=== PATIENT | male | born 1990 | race Caucasian/White ===

== ENCOUNTER 2022-10-04 10:04 | Emergency (ER) | payer SELFPAY ==
[2022-10-04 10:05] VITALS: BP 140/115; PULSE 103; RESP 18; TEMP 35.8; O2SAT 100; BMI 23.3
[2022-10-04] MEDS: 0.9% Normal Saline 1,000 ML 1000 ML IV (10:34)
[2022-10-04] MEDS: Ondansetron 4 MG/2 ML Vial IV (10:35)
[2022-10-04] MEDS: Ketorolac 15 MG/ML Vial IV (10:36)
[2022-10-04 10:47] LABS: Absolute Lymphocyte Count 2.13 X10^3/uL (0.83-4.51); Absolute Neutrophil Count 7.7 X10^3/uL (2.0-7.7); Basophil# 0.08 X10^3/uL; Basophil% 0.8 % (0-1); Eosinophil# 0.17 X10^3/uL; Eosinophils% 1.6 % (0-5); Hematocrit 49.1 % (40-54); Hemoglobin 16.6 g/dL (13.0-16.5); Lymphocyte # 2.13 X10^3/ul (0.83-4.51); Mean Corp Hgb Conc 33.8 g/dL (32-36); Mean Corpuscular Hgb 29.8 pg (27.0-32.0); Mean Corpuscular Volume 88.2 fL (80-94); Mean Platelet Vol. 9.6 fl (6.2-12.0); Monocyte# 0.56 X10^3/uL; Monocyte% 5.3 % (0-10); NRBC Flagged by Analyzer 0 % (0-5); Neutrophil # 7.65 X10^3/uL (2.7-7.7); Neutrophil % 71.9 % (47-70); Platelet Count 308 K/mm3 (150-450); RBC Distribution Width CV 12.2 % (11.6-14.6); RBC Distribution Width SD 39.9 fl (35.1-43.9); Red Blood Count 5.57 M/mm3 (4.6-6.2); White Blood Count 10.6 K/mm3 (4.4-11.0)
--- NOTE | 2022-10-04 11:01 | EDS_ITS ---
HPI HPI - GI History of Present Illness Chief Complaint: Abd Pain Detail of Chief Complaint: Abdominal pain from subxiphoid region to the pubic symphysis and back Informant: patient Abdominal Pain/Flank Pain Onset: Month(s) (Has been present for months worse past 12 to 24 hours) Context: Sudden Onset Timing: Continuous Quality: Aching Location: - (Epigastrium to pubic symphysis) Current Severity: Moderate Maximum Severity: Severe Worsened by: Car ride, Food and Movement; Not Worsened By Nothing Relieved by: Nothing; Not Relieved By Antacids, Food or Remaining Still Nausea/Vomiting/Emesis GI Symptom: Positive for Nausea and Vomiting (X1 today) Diarrhea/Melena/Hematochezia GI Symptom: Negative for Diarrhea, Melena or Hematochezia Associated Symptoms Associated Symptoms: Negative for Dysuria, Frequency, Hematuria or Urgency Narrative Narrative: As I entered the room patient was pacing. He states he cannot find a position of comfort. Patient's had abdominal pain for greater than a year. The pain became worse over the past 12-24 hrs. He was seen in outside facility. He was seen at [facility]. He was told he had dyspepsia. ER record from that facility was obtained and reviewed. Patient has had no imaging. Nothing specifically made the pain worse. He denies history of renal ureterolithiasis. He denies family history of renal ureterolithiasis. He denies intolerance to greasy food, fried foods or spicy foods. There is family history cholelithiasis. He does report nausea and vomiting x1 today. He denies fever, chills night sweats. He denies cough, shortness of breath or difficulty breathing. He denies dysuria, frequency, urgency or hematuria. He denies pain radiating to his scrotum or testicles. He denies flank pain. He denies history of trauma. He does endorse smoking history. He denies illicit drug use. PFSH PFS Medical History no medical history no medical history Home Medications famotidine 20 mg tablet (Pepcid) 20 mg PO BID #30 tabs 10/04/22 [Rx Last Taken Unknown] Allergy/AdvReac Type Severity Reaction Status Date / Time No Known Allergies Allergy Verified 10/04/22 10:05 Family History other other (Cholelithiasis) Surgical History no surgical history no surgical history Social History (Updated 10/04/22 @ 11:[address] Len Strauss MD) household members: none Smoking Status: Current every day smoker tobacco type: cigarettes substance use type: does not use ROS ROS ED Constitutional Constitutional ED: Denies chills, fever(s), subjective, sweats or weight loss ENT ENT ED: Denies ear pain, rhinorrhea or sore throat Cardiovascular Cardiovascular: Denies chest pain, orthopnea, palpitations, paroxysmal nocturnal dyspnea or racing heartbeat Respiratory/Chest Respiratory/Chest: Denies cough, dyspnea, dyspnea on exertion, orthopnea or paroxysmal nocturnal dyspnea Gastrointestinal Gastrointestinal: Reports abdominal pain, nausea and vomiting; Denies constipation, diarrhea or melena Genitourinary Genitourinary ED: Denies dysuria, hematuria or urinary frequency Musculoskeletal Musculoskeletal: Denies arthralgias, back pain, myalgias or neck pain Integumentary Denies abscess, Abrasions or rash Neurologic Neurologic: Denies headache(s), paresthesias or weakness Psychiatric Psychiatric: Denies anxiety or depression Endocrine Endocrinology: Denies polydipsia, polyphagia or polyuria Hematologic/Lymphatic Hematologic/Lymphatic: Denies easy bleeding or easy bruising EXAM Physical Exam Const Vital Signs: 10/04/22 10:05 Temperature 96.4 F L Temperature Source Temporal Pulse Rate 103 H Respiratory Rate 18 Blood Pressure 140/115 H Blood Pressure Mean 123 Pulse Ox 100 Oxygen Delivery Method Room Air Positive well nourished and well developed General Appearance ED: well developed; Negative for NAD or pallor HEENT Reports TM's clear HEENT Narrative: Poor dentition. Uvula midline. No erythema or exudate the posterior pharynx. normocephalic Tympanic Membrane ED: Yes TM's clear Eyes PERRL General Eye ED: Negative for pale conjunctiva or scleral icterus Neck no lymphadenopathy, supple and no JVD Resp normal respiratory effort Cardio regular rhythm, S1 normal heart sound, S2 normal heart sound and no murmurs Rate: tachycardic GI no masses; Negative for non-tender or non-distended Inspection: abdominal distention Auscultation: hypoactive bowel sounds Palpation: tender other (Diffusely greatest epigastric area) and guarding; Negative for soft, hepatomegaly, splenomegaly, hernia, mass, pulsatile mass or rebound tenderness present Narrative: There is no inguinal lymphadenopathy or inguinal hernia. There is no scrotal mass. Back/Spine no CVA tenderness Cervical Spine: Negative for cervical spine tenderness Thoracic Spine / Upper Back: Negative for thoracic spinal tenderness Lumbar Spine / Lower Back: Negative for lumbar spinal tenderness Extremity full ROM General Extremety ED: Negative for edema or tenderness General Extremity: Negative for edema Neuro CN's II-XII intact bilaterally, moves all extremities, no sensory deficits noted and gait normal Sensorium / Orientation: alert Psych mental status grossly normal and thought process normal Skin no wounds General Skin Exam: Negative for jaundice or pallor MDM MDM MDM Narrative Medical decision making narrative: Differential diagnosis could include GERD with esophagitis, peptic ulcer disease, biliary disease with colic, obstructing ureteral stone versus abdominal pain of unknown etiology. Blood work was ordered to determine if a CAT scan ve rsus ultrasound would be the appropriate radiologic study. We will review his prior records. As noted in the HPI narrative he was seen for dyspepsia. He has had no imaging performed. To evaluate his symptoms and complaints CBC, liver, lipase and UA were ordered. Lab Data Attestation: I reviewed the patient's lab results. Lab results narrative: CBC, comprehensive metabolic panel, lipase and UA are all negative. Labs: Laboratory Results - last 24 hr 10/04/22 10/04/22 10/04/22 10:35 10:35 11:40 WBC 10.6 RBC 5.57 Hgb 16.6 H Hct 49.1 MCV 88.2 MCH 29.8 MCHC 33.8 RDW Std Deviation 39.9 RDW Coeff of Kay 12.2 Plt Count 308 MPV 9.6 Immature Gran % (Auto) 0.400 Neut % (Auto) 71.9 H Lymph % (Auto) 20.0 [place] % (Auto) 5.3 Eos % (Auto) 1.6 Baso % (Auto) 0.8 Absolute Neuts (auto) 7.7 Absolute Lymphs (auto) 2.13 Nucleated RBC % 0 Sodium 139 Potassium 3.8 Chloride 104 Carbon Dioxide 29.0 Anion Gap 6 BUN 20 H Creatinine 1.14 Estim Creat Clear Calc 80.92 Est GFR (MDRD) Af Amer 96 Est GFR (MDRD) Non-Af 79 BUN/Creatinine Ratio 17.5 Glucose 104 Calcium 9.3 Total Bilirubin 0.30 Direct Bilirubin 0.11 AST 15 ALT 24 Alkaline Phosphatase 45 Total Protein 7.6 Albumin 3.8 Globulin 3.8 Lipase 131 Urine Color Yellow Urine Clarity Sl. Cloudy Urine pH 6.5 Ur Specific [place] 1.015 Urine Protein 30 H Urine Glucose (UA) Normal Urine Ketones 5 H Urine Occult Blood Negative Urine Nitrite Negative Urine Bilirubin Negative Urine Urobilinogen 1 H Ur Leukocyte Esterase 25 H Urine RBC 0-5 SEEN Urine WBC 0-5 SEEN Ur Squamous Epith Cells 0-5 SEEN Urine Bacteria RARE Urine Mucus 0 SEEN Treatment and Re-Evaluation Narrative: Patient was reassessed and informed of results at 1219. He is sitting up smiling in no discomfort. Discharge Plan Triage Chief Complaint: Abd Pain Other Complaint: Back ED Provider: Len Strauss Dx/Rx/DC Orders Clinical Impression: Abdominal pain, acute, Nausea & vomiting Instructions: ED Abdominal Pain Unkn Cause Male... Prescriptions: New famotidine [Pepcid] 20 mg tablet 20 mg PO BID Qty: 30 0RF Primary Care Provider: Care Physician,No Primary Referrals: Nasra Dewitt [Non-Staff] - 5-7 Days Care Physician,No Primary [Primary Care Provider] - Disposition Disposition: Home, Self Care
[2022-10-04 11:13] LABS: AST(SGOT) 15 U/L (15-37); Alanine Aminotransfer ALT/SGPT 24 U/L (16-61); Albumin, Serum 3.8 g/dL (3.2-5.0); Alkaline Phosphatase 45 U/L (45-117); Anion Gap 6 (5-15); BUN 20 mg/dL (7-18); BUN/Creat Ratio 17.5 RATIO (10-20); Bilirubin, Direct 0.11 mg/dL (0.00-0.30); Calcium,Total 9.3 mg/dL (8.5-10.1); Chloride 104 mmol/L (98-107); Creatinine, Serum 1.14 mg/dL (0.70-1.30); EST Glomerular Filtration Rate 79 mL/min (>60); Est Glom Filt Rate - Afr Amer 96 mL/min (>60); Estimated Creatinine Clearance 80.92 ml/min; Globulin 3.8 g/dL (2.2-4.2); Glucose 104 mg/dL (74-106); Lipase 131 U/L (73-393); Potassium 3.8 mmol/L (3.5-5.1); Protein, Total 7.6 g/dL (6.4-8.2); Sodium Level 139 mmol/L (136-145)
--- NOTE | 2022-10-04 11:42 | CM.ED ---
ADAMARIS Note SW reviewed chart and noted that pt had no insurance and no PCP. SW provided patient with financial reporting manager packet which included medicaid application and information about [facility]. No further issues or concerns voiced. Monisha AMBROSE
[2022-10-04 11:46] LABS: Mucous, Urine 0 SEEN /hpf (<or=2+)
[2022-10-04 11:48] LABS: Color, Urine Yellow (Yellow); Glucose, Dipstick Normal (Normal); Ketone-Dipstick 5 mg/dl (Negative); Leukocyte Esterase-Dipstick 25 /ul (Negative); Nitrite-Dipstick Negative (Negative); Occult Blood-Urine Negative /ul (Negative); Protein-Dipstick 30 mg/dl (Negative); Specific Gravity, Urine 1.015 (1.002-1.030); Urine Bilirubin Dipstick Negative (Negative); Urine Clarity Sl. Cloudy (Clear); Urine Urobilinogen 1 mg/dl (Normal); Urine pH 6.5 (5.0 - 8.0)
[2022-10-04 11:58] LABS: Red Blood Cells-Urine 0-5 SEEN /hpf (0-5); Squamous Epithelial Cells - UA 0-5 SEEN /hpf (0-5); White Blood Cells 0-5 SEEN /hpf (0-5)
[2022-10-04 11:59] LABS: Bacteria RARE /hpf (None Seen)
== END 2022-10-04 12:33 | disposition home or self-care (01) ==
PROVIDERS: Emergency Provider Emergency Medicine; Visit Provider Emergency Medicine
DX: R10.9 Unspecified abdominal pain (principal); R11.2 Nausea with vomiting, unspecified; F17.210 Nicotine dependence, cigarettes, uncomplicated
CPT/HCPCS: 80048; 80076; 81001; 83690; 85025; 96361; 96374; 96375; 99283; J7030; J2405

== ENCOUNTER 2023-04-19 20:52 | Emergency (ER) | payer SELFPAY ==
[2023-04-19 20:53] VITALS: BP 158/120; PULSE 115; RESP 18; TEMP 36.7; O2SAT 100; BMI 23.4
--- NOTE | 2023-04-19 22:32 | EX.ED.VIS.PS ---
HPI HPI - Psych History of Present Illness Chief Complaint: Anxiety Informant: patient Narrative Narrative: Pain very concerned because earlier he had paresthesias perioral and bilateral hands, along with cramping of both of his hands simultaneously symmetrically and his mouth was cramping and he was having trouble talking as a result. Prior to this, he felt like he was having a panic attack, and he admits to hyperventilating. This lasted for 30 or 40 minutes or so, everything gradually resolved and he feels better upon evaluation. He states he drinks quite a bit of alcohol every day and he has not had any today and he was concerned maybe he was in withdrawal. He is evaluated around 2200. PFSH PFSH no medical history Home Medications famotidine 20 mg tablet (Pepcid) 20 mg PO BID #30 tabs 10/04/22 [Rx Last Taken Unknown] Allergy/AdvReac Type Severity Reaction Status Date / Time No Known Allergies Allergy Verified 04/19/23 21:19 Social History household members: none Smoking Status: Current every day smoker tobacco type: cigarettes substance use type: does not use ROS ROS ED Constitutional Constitutional ED: Denies chills or fever(s) Eyes Eyes: Denies change in vision or diplopia Cardiovascular Cardiovascular: Denies chest pain Respiratory/Chest Respiratory/Chest: Denies dyspnea Gastrointestinal Gastrointestinal: Denies diarrhea, nausea or vomiting Integumentary Denies abscess or rash Neurologic Neurologic: Reports as per HPI and paresthesias; Denies headache(s) or weakness Psychiatric Psychiatric: Reports anxiety; Denies suicidal thoughts EXAM Physical Exam Const Vital Signs: 04/19/23 20:53 Temperature 98.1 F Temperature Source Temporal Pulse Rate 115 H Respiratory Rate 18 Blood Pressure 158/120 H Blood Pressure Mean 132 Pulse Ox 100 Positive well nourished and well developed General Appearance ED: well developed and NAD Neuro oriented x3, CN's II-XII intact bilaterally, no sensory deficits noted and gait normal Neuro Narrative: nml speech Hickman Coma Scale: document GCS findings Spontaneous Obeys Commands Oriented 15 Sensorium / Orientation: alert Psych mental status grossly normal, thought process normal, cooperative, affect normal, speech normal and activity/motor behavior normal MDM MDM MDM Narrative Medical decision making narrative: Patient reassured this was likely an anxiety reaction giving him paresthesias from transient electrolyte shifting, as a result of acute respiratory alkalosis. Patient is well now, he is no longer tachycardic, and since it is the end of the day and he has not had any alcohol, I do not think this is florid withdrawal since his symptoms resolved. Reassured and discharged home, we also discussed curbing his alcohol use quite a bit, and making sure he is eating meals appropriately. Discharge Plan Triage Chief Complaint: Anxiety ED Provider: Savage Yanes Dx/Rx/DC Orders Clinical Impression: Paresthesias, Anxiety attack Instructions: ED Panic Attack Prescriptions: No Action famotidine [Pepcid] 20 mg tablet 20 mg PO BID Qty: 30 0RF Primary Care Provider: Care Physician,No Primary Referrals: Doctor,Your [Non-Staff] - As Needed Disposition Disposition: Home, Self Care
[2023-04-19 22:36] VITALS: BP 136/107; PULSE 98; RESP 18; O2SAT 99
== END 2023-04-19 22:47 | disposition home or self-care (01) ==
PROVIDERS: Emergency Provider Emergency Medicine; Visit Provider Emergency Medicine
DX: R20.2 Paresthesia of skin (principal); F41.9 Anxiety disorder, unspecified; F17.210 Nicotine dependence, cigarettes, uncomplicated
CPT/HCPCS: 99282

== ENCOUNTER 2023-10-27 04:09 | Emergency (ER) | payer SELFPAY ==
[2023-10-27 04:11] VITALS: TEMP 36.6; BMI 25.7
--- NOTE | 2023-10-27 04:11 | EKG12_ITS ---
Test Reason : CP Blood Pressure : / mmHG Vent. Rate : 050 BPM Atrial Rate : 050 BPM P-R Int : 142 ms QRS Dur : 098 ms QT Int : 460 ms P-R-T Axes : 008 069 053 degrees QTc Int : 419 ms Sinus bradycardia Otherwise normal ECG Confirmed by Juan Clinton ([id number]), editor book CATIE MCCORD ([id number]) on 10/30/2023 7:20:22 AM Referred By: Confirmed By:Juan Clinton
[2023-10-27 04:14] VITALS: BP 166/126; O2SAT 100
--- NOTE | 2023-10-27 04:18 | EDS_ITS ---
HPI <Dr. Len Strauss MD - Last Filed: 10/27/23 10:36> HPI - GI History of Present Illness Chief Complaint: Abd Pain Detail of Chief Complaint: Awakened from sleep with abdominal pain Informant: patient Abdominal Pain/Flank Pain Onset: Today and Hours Context: Sudden Onset Timing: Continuous Quality: Aching Location: Epigastric and LUQ Current Severity: Moderate Maximum Severity: Severe Worsened by: Movement Relieved by: Nothing Nausea/Vomiting/Emesis GI Symptom: Positive for Nausea Diarrhea/Melena/Hematochezia GI Symptom: Negative for Diarrhea, Melena or Hematochezia Associated Symptoms Associated Symptoms: Negative for Dysuria, Frequency, Hematuria or Urgency Narrative Narrative: Patient is a 33-year-old male. He was seen last year twice. Once for anxiety and once for abdominal pain of unknown etiology. He is a smoker. He started smoking in his early 20s. He also drinks alcohol daily. He drinks between a pint and 5. He denies history of pancreatitis. He denies black or maroon-c olored stool. He denies history of reflux, peptic ulcer disease. He is present on no medication. Patient denies fever, chills night sweats. Patient denies weight gain or weight loss. Patient denies ocular, visual auditory symptoms. Patient denies chest discomfort. He denies of shortness of breath. He does report it hurts in his upper abdomen when he breathes. He is on no anticoagulant. Prior similar symptoms: Yes (September 2022 with unknown etiology) Recent Illness/Hospitalization: No PFSH <Dr. Len Strauss MD - Last Filed: 10/27/23 10:36> [facility] Medical History Alcohol abuse Home Medications omeprazole 40 mg capsule,delayed release 40 mg PO DAILY #30 caps 10/27/23 [Rx Last Taken Unknown] Allergy/AdvReac Type Severity Reaction Status Date / Time No Known Allergies Allergy Verified 10/27/23 04:10 Social History household members: none Smoking Status: Heavy Smoker (>10/day) substance use type: does not use ROS <Dr. Len Strauss MD - Last Filed: 10/27/23 10:36> ROS ED Constitutional Constitutional ED: Denies chills, fever(s), subjective, sweats or weight loss ENT ENT ED: Denies ear pain, rhinorrhea or sore throat Cardiovascular Cardiovascular: Denies chest pain, orthopnea, palpitations or paroxysmal nocturnal dyspnea Respiratory/Chest Respiratory/Chest: Denies cough, dyspnea, dyspnea on exertion, orthopnea or paroxysmal nocturnal dyspnea Gastrointestinal Gastrointestinal: Reports abdominal pain and nausea; Denies constipation, diarrhea, melena or vomiting Genitourinary Genitourinary ED: Denies dysuria, hematuria or urinary frequency Musculoskeletal Musculoskeletal: Denies arthralgias, back pain, myalgias or neck pain Integumentary Denies rash Neurologic Neurologic: Denies headache(s) or paresthesias Psychiatric Psychiatric: Reports anxiety; Denies depression Hematologic/Lymphatic Hematologic/Lymphatic: Denies easy bleeding or easy bruising EXAM <Dr. Len Strauss MD - Last Filed: 10/27/23 10:36> Physical Exam Const Vital Signs: 10/27/23 04:11 10/27/23 04:14 10/27/23 06:10 Temperature 97.9 F Temperature Source Temporal Pulse Rate 100 Respiratory Rate 19 H Blood Pressure 166/126 H Blood Pressure Mean 139 Pulse Ox 100 100 Oxygen Delivery Method Room Air 10/27/23 08:59 10/27/23 10:28 Temperature 98.4 F 98.1 F Temperature Source Oral Pulse Rate 67 87 Respiratory Rate 14 16 Blood Pressure 123/92 H 131/81 H Blood Pressure Mean 102 97 Pulse Ox 98 98 Oxygen Delivery Method Room Air Positive well nourished and well developed Constitutional Narrative: Patient appears uncomfortable. He is holding his abdomen as he walks and from triage. He appears pale. General Appearance ED: well developed and pallor HEENT Reports TM's clear and dry mucous membranes HEENT Narrative: Poor dentition. normocephalic and atraumatic Tympanic Membrane ED: Yes TM's clear Mouth ED: Yes dry mucous membranes Mouth: dry mucous membranes Eyes PERRL and EOMs intact bilaterally General Eye ED: Negative for pale conjunctiva or scleral icterus Neck no lymphadenopathy, supple and no JVD Resp normal respiratory effort and clear to auscultation bilaterally Cardio regular rate, regular rhythm, S1 normal heart sound, S2 normal heart sound and no murmurs GI non-distended and no masses; Negative for non-tender Auscultation: hypoactive bowel sounds Palpation: tender epigastric and LUQ and guarding LUQ; Negative for rigid, hepatomegaly, splenomegaly, hernia, mass or pulsatile mass Back/Spine no CVA tenderness Extremity full ROM General Extremety ED: Negative for edema or tenderness General Extremity: Negative for edema Neuro CN's II-XII intact bilaterally, moves all extremities, no sensory deficits noted and gait normal Sensorium / Orientation: alert Psych Mood & Affect: depressed Skin no wounds General Skin Exam: pallor; Negative for jaundice Lesions: no lesions Rashes: no rashes <Dr. Savage Yanes MD - Last Filed: 10/27/23 10:24> Physical Exam Const Vital Signs: 10/27/23 04:11 10/27/23 04:14 10/27/23 06:10 Temperature 97.9 F Temperature Source Temporal Pulse Rate 100 Respiratory Rate 19 H Blood Pressure 166/126 H Blood Pressure Mean 139 Pulse Ox 100 100 Oxygen Delivery Method Room Air 10/27/23 08:59 10/27/23 10:28 Temperature 98.4 F 98.1 F Temperature Source Oral Pulse Rate 67 87 Respiratory Rate 14 16 Blood Pressure 123/92 H 131/81 H Blood Pressure Mean 102 97 Pulse Ox 98 98 Oxygen Delivery Method Room Air MDM <Dr. Len Strauss MD - Last Filed: 10/27/23 10:36> MDM MDM Narrative Medical decision making narrative: Differential diagnosis is abdominal pain unknown etiology, GERD, peptic ulcer disease, pancreatitis doubt cholelithiasis. IV was established. He was treated with IV Zofran and morphine for his nausea and pain respectively. Prior records were reviewed. History & Record Review Additional record(s) reviewed:: Prior ED visit (Review of prior records indicates patient has not had a CT of the abdomen and pelvis within the last 10 years.) and Prior labs Lab Data Attestation: I reviewed the patient's lab results. Lab results narrative: CBC is normal. Basic metabolic panel is normal. Hepatic panel is normal. Lipase is normal. Labs: Laboratory Results - last 24 hr 10/27/23 10/27/23 04:20 07:10 WBC 7.6 RBC 4.92 Hgb 15.0 Hct 44.5 MCV 90.4 MCH 30.5 MCHC 33.7 RDW Std Deviation 40.0 RDW Coeff of Kay 12.2 Plt Count 283 MPV 10.0 Immature Gran % (Auto) 0.100 Neut % (Auto) 53.9 Lymph % (Auto) 32.5 [place] % (Auto) 8.9 Eos % (Auto) 3.8 Baso % (Auto) 0.8 Absolute Neuts (auto) 4.1 Absolute Lymphs (auto) 2.46 Nucleated RBC % 0 PT 13.4 INR 1.0 Sodium 138 Potassium 3.6 Chloride 103 Carbon Dioxide 30.0 Anion Gap 5 BUN 21 H Creatinine 1.22 Estim Creat Clear Calc 74.91 Est GFR (MDRD) Af Amer 88 Est GFR (MDRD) Non-Af 73 BUN/Creatinine Ratio 17.2 Glucose 98 Lactic Acid 0.9 Calcium 9.2 Total Bilirubin 0.50 Direct Bilirubin 0.14 AST 20 ALT 53 Alkaline Phosphatase 47 Total Protein 7.6 Albumin 3.9 Globulin 3.7 Lipase 43 Urine Color Yellow Urine Clarity Clear Urine pH 7.0 Ur Specific Marion 1.010 Urine Protein 15 H Urine Glucose (UA) Normal Urine Ketones 50 H Urine Occult Blood Negative Urine Nitrite Negative Urine Bilirubin Negative Urine Urobilinogen Normal Ur Leukocyte Esterase 25 H Urine RBC 0 SEEN Urine WBC 0-5 SEEN Ur Squamous Epith Cells 0 SEEN Urine Bacteria 0 SEEN Urine Mucus 2+ Radiography Diagnostic Testing: Clinical Impression(s) from Imaging Studies Abdomen/Pelvis CT 10/27/23 05:54 IMPRESSION: Distended gallbladder with edematous wall suggesting cholecystitis. Recommend further evaluation with gallbladder ultrasound. Mild atherosclerotic disease. Electronically Signed: Martínez Ely MD at 6:52 EST , Gallbladder Ultrasound 10/27/23 07:01 IMPRESSION: Gallstone in the gallbladder neck with borderline thickening of the gallbladder wall. If clinically indicated, nuclear medicine biliary scan might be of further value. Electronically Signed: rPavin Montesinos MD at 8:17 EST , CT of the abdomen pelvis without contrast was reviewed by me at 0621. There is no evidence of renal or ureteral calculi. No evidence of hydroureter or hydronephrosis. There is no obvious abdominal pathology noted. Awaiting formal read by radiologist. EKG Initial EKG: Attestation: I personally reviewed and interpreted this EKG as follows: Interpretation: Sinus Bradycardia (Rate is 50. Other than the slow heart rate the EKG is normal. ME interval is 142 ms. QRS duration 98 ms. QT duration 460 ms. [place] is normal.) Treatment and Re-Evaluation :: Patient was reassessed at 0523. Patient now complaining of right flank pain and cannot find a position of comfort. There is no history of renal or ureterolithiasis. Will obtain UA. If there is blood will obtain CT of the abdomen pelvis without contrast. I was informed at 0554 the patient is unable to sit still. In light of this we will obtain CT of the abdomen pelvis to assess for obstructing ureteral stone. Patient was ordered IV Toradol for his discomfort since morphine did not initially have any effect. Nurse also informed that he has not been able to urinate. CAT scan raises concern for acute cholecystitis. Radiologist recommended ultrasound of the gallbladder. This was ordered. Disposition to be made after ultrasound has been performed and interpreted by radiologist. Patient was informed that the radiologist raise concern for inflammation of his gallbladder. He understands that an ultrasound has been ordered. <Dr. Savage Yanes MD - Last Filed: 10/27/23 10:24> [facility] Lab Data Labs: Laboratory Results - last 24 hr 10/27/23 10/27/23 04:20 07:10 WBC 7.6 RBC 4.92 Hgb 15.0 Hct 44.5 MCV 90.4 MCH 30.5 MCHC 33.7 RDW Std Deviation 40.0 RDW Coeff of Kay 12.2 Plt Count 283 MPV 10.0 Immature Gran % (Auto) 0.100 Neut % (Auto) 53.9 Lymph % (Auto) 32.5 [place] % (Auto) 8.9 Eos % (Auto) 3.8 Baso % (Auto) 0.8 Absolute Neuts (auto) 4.1 Absolute Lymphs (auto) 2.46 Nucleated RBC % 0 PT 13.4 INR 1.0 Sodium 138 Potassium 3.6 Chloride 103 Carbon Dioxide 30.0 Anion Gap 5 BUN 21 H Creatinine 1.22 Estim Creat Clear Calc 74.91 Est GFR (MDRD) Af Amer 88 Est GFR (MDRD) Non-Af 73 BUN/Creatinine Ratio 17.2 Glucose 98 Lactic Acid 0.9 Calcium 9.2 Total Bilirubin 0.50 Direct Bilirubin 0.14 AST 20 ALT 53 Alkaline Phosphatase 47 Total Protein 7.6 Albumin 3.9 Globulin 3.7 Lipase 43 Urine Color Yellow Urine Clarity Clear Urine pH 7.0 Ur Specific [place] 1.010 Urine Protein 15 H Urine Glucose (UA) Normal Urine Ketones 50 H Urine Occult Blood Negative Urine Nitrite Negative Urine Bilirubin Negative Urine Urobilinogen Normal Ur Leukocyte Esterase 25 H Urine RBC 0 SEEN Urine WBC 0-5 SEEN Ur Squamous Epith Cells 0 SEEN Urine Bacteria 0 SEEN Urine Mucus 2+ Radiography Diagnostic Testing: Clinical Impression(s) from Imaging Studies Abdomen/Pelvis CT 10/27/23 05:54 IMPRESSION: Distended gallbladder with edematous wall suggesting cholecystitis. Recommend further evaluation with gallbladder ultrasound. Mild atherosclerotic disease. Electronically Signed: Martínez Ely MD at 6:52 EST , Gallbladder Ultrasound 10/27/23 07:01 IMPRESSION: Gallstone in the gallbladder neck with borderline thickening of the gallbladder wall. If clinically indicated, nuclear medicine biliary scan might be of further value. Electronically Signed: Pravin Montesinos MD at 8:17 EST , Treatment and Re-Evaluation Comments:: Patient checked out to me. He is pain-free. I examined his abdomen, it is very benign and nontender throughout. I reviewed the images and the result of the ultrasound of the gallbladder which I agree with, it basically is consistent with a stone that appears to be in the neck, smile distention and possible early gallbladder wall thickening but negative sonographic Weller and no pericholecystic fluid or obvious signs of acute cholecystitis otherwise. I discussed with surgery Dr. Alvarez. She states this sounds more like alcoholic gastritis than it does biliary colic since it woke him up in the middle of the night and he has had frequent episodes for years without having elevation of liver enzymes or white blood count. She is okay with him going home and following up as an outpatient but advises omeprazole daily I discussed this with the patient as well as curbing his alcohol use and he is comfortable with that plan we will discharge him home. Discharge Plan Triage Chief Complaint: Abd Pain ED Provider: Len Strauss Dx/Rx/DC Orders Clinical Impression: Abdominal pain, acute, left upper quadrant, Acute right flank pain, History of alcoholism, Elevated blood-pressure reading, without diagnosis of hypertension, Cholelithiasis Instructions: ED Gastritis (Adult), ED Hypertension, To Be Confirmed Prescriptions: New omeprazole 40 mg capsule,delayed release(DR/EC) 40 mg PO DAILY Qty: 30 0RF Primary Care Provider: Care Physician,No Primary Referrals: Beronica Alvarez MD [Med Staff - Active Staff] - (Call for appointment to follow-up regarding gallstone) Nasra Dewitt [Non-Staff] - 3-5 Days if not improving Care Physician,No Primary [Primary Care Provider] - Disposition Disposition: Home, Self Care Discharge Date/Time: 10/27/23 10:32
[2023-10-27 04:29] LABS: Absolute Lymphocyte Count 2.46 X10^3/uL (0.83-4.51); Absolute Neutrophil Count 4.1 X10^3/uL (2.0-7.7); Basophil# 0.06 X10^3/uL; Basophil% 0.8 % (0-1); Eosinophil# 0.29 X10^3/uL; Eosinophils% 3.8 % (0-5); Hematocrit 44.5 % (40-54); Lymphocyte # 2.46 X10^3/ul (0.83-4.51); Lymphocyte % 32.5 % (19-41); Mean Corp Hgb Conc 33.7 g/dL (32-36); Mean Corpuscular Hgb 30.5 pg (27.0-32.0); Mean Corpuscular Volume 90.4 fL (80-94); Monocyte# 0.67 X10^3/uL; Monocyte% 8.9 % (0-10); NRBC Flagged by Analyzer 0 % (0-5); Neutrophil # 4.08 X10^3/uL (2.7-7.7); Neutrophil % 53.9 % (47-70); Platelet Count 283 K/mm3 (150-450); RBC Distribution Width CV 12.2 % (11.6-14.6); Red Blood Count 4.92 M/mm3 (4.6-6.2); White Blood Count 7.6 K/mm3 (4.4-11.0)
[2023-10-27] MEDS: Morphine 4 MG/ML Syringe IV (04:32)
[2023-10-27] MEDS: Ondansetron 4 MG/2 ML Vial IV (04:32)
[2023-10-27] MEDS: 0.9% Normal Saline (1000mL) 1,000 ML 1000 ML IV (04:34)
[2023-10-27 04:42] LABS: Prothrombin Time (Protime)PT. 13.4 SECONDS (11.7-14.9)
--- OUTSIDE RECORDS SUMMARY | 2023-10-27 04:46 | XMS RPT_ITS | CCD ---
Author Name Unknown Address [address] [place] [id number] Organization [facility] Care Team Providers Care Supervisor Contingents Name Role Phone Unavailable Primary Care Provider UnavailDR VIRGEN Jordan Admitting Unavailable MADISON, DR VIRGEN Espinosa Attending Unavailable MADISON, DR VIRGEN Espinosa Primary Care Unavailable NO, DOCTOR ON Consulting Unavailable Results Test Name Value Interpretation Reference Range Facil ity Encounters Encounter Date Encounter Type Care Provider Facility Start: 07-18-2022 End: 07-18-2022 Emergency department patient visit DR VIRGEN WALLACE [facility] Start: 07-04-2022 End: 07-04-2022 ambulatory Facility:[facility] Start: 11-12-2021 End: 11-12-2021 Subsequent hospital visit by physician Provider [facility] Procedures Date Procedure Procedure Detail Performing Clinician Start: 11-04-2021 BASIC METABOLIC PNL Pro vider [facility] Start: 11-04-2021 CBC + DIFF Provider [facility] Start: 11-04-2021 HEPATIC FUNCTION PNL Pr ovider [facility] Start: 11-04-2021 LIPASE BLD Provider [facility] Start: 11-04-2021 Radiologic exam comp lete acute abdomen series Provider [facility] Start: 11-04-2021 TROPONIN T Provider [facility] Social History Date Type Detail Facility Tobacco smoking stat NHIS Tobacco smoking consumption unknown [facility] Start: 1990 Sex Assigned At Not on file C [facility] Discharge instructions 11-12-2021 Instructions Note Date & Type Note Facility 11-12-2021 Hospital Discharg e instructions Lonnie Farrell - 11/12/2021 9:36 [place] [address] EMERGENCY ROOM HOME GOING INSTRUCTIONS Patient: VIKASH SHER [id number] LONNIE DOMINGUEZ M.D. ED Homegoing Instructions Rx - PT Pharmacy: Prescription(s) have been electronically transmitted to your listed pharmacy of choice. Prescriptions Active Scripts Medication Dose/Rte/Freq Days Qty Entered Max Daily Dose Ondansetron* ODT (Zofran* Odt) 4 MG PO 5 11/12/21 Strength: 4 MG ODT Q6HPRN PRN NAUSEA 2135 AND/OR VOMITING Pantoprazole* Sod (Protonix*) 40 MG PO DAILY 30 11/12/21 Strength: 40 MG ECT 2135 Return to ED: Return to the Emergency Department if any further problems occur or call [phone] . Return for any new or worsening symptoms, questions or concerns. Return for increasing abdominal pain, fever, bloody stools. Follow up: We recommend that you call: Mike Galvan MD [address] [place], [place] [id number] to schedule follow-up for within 5-7 days. Special Instructions: Avoid spicy foods and alcohol. <Electronically signed by LONNIE FARRELL M.D.> 11/12/212137 LONNIE FARRELL M.D. I UNDERSTAND THAT: 1. I have received the above instructions and that they have been explained to me by my Emergency Physician or Nurse. 2. I have had the opportunity to ask questions. 3. I am free to return to the [facility] Department if additional problems occur or if I am unable to see my doctor. 4. I am responsible for arranging my follow-up visit. 5. My signature indicates that I have read and understand the above. _ Instructed by VIKASH SHER << Signature on File>> Reported By: LONNIE FARRELL M.D. Signed By: LONNIE FARRELL M.D. Tests performed at: [address] [address] documented in this encounter [facility] Summary Purpose Family History No Family History Records FoundNo Family History Records FoundNo Family History Records FoundNo Family History Records Found Advance Directives No Advanced Directives Records FoundNo Advanced Directives Records FoundNo Advanced Directives Records FoundNo Advanced Directives Records Found Additional Source Comments Source Comments (unrecognize d section and content) In the event this informatio n is protected by the Federal Confidentiality of Alcohol and Drug Abuse Patient Records regulations: The Federal rules restrict any use of the information to criminally investigate or prosecute any alcohol or drug abuse patient.[facility] the event this information is protected by the Federal Confidentiality of Alcohol and Drug Abuse Patient Records regulations: The Federal rules restrict any use of the information to criminally investigate or prosecute any alcohol or drug abuse patient.[facility] (unrecognized sect ion and content) No Status Records FoundNo Status Records FoundNo Status Records FoundNo Status Records Found INFORMATION SOURCE (unrecogn ized section and content) DATE CREATED AUTHOR AUTHOR'S ORGANIZ ATION 01/17/2022 [facility] DATE CREATED AUTHOR AUTHOR'S ORGANIZ ATION 07/06/2022 [facility] DATE CREATED AUTHOR AUTHOR'S ORGANIZ ATION 07/22/2022 [facility] FOR RECORDS PERTAINING TO PATIENTS WHO ARE OR HAVE BEEN ENROLLED IN A CHEMICAL DEPENDENCY/SUBSTANCEABUSE PROGRAM, SOME INFORMATION MAY BE OMITTED. This clinical summary was aggregated from multiple sources. Caution should be exercised in using it in the provision of clinical care. This summary normalizes information from multiple sources, and as a consequence, information in this document may materially change the coding, format and clinical context of patient data. In addition, data may be omitted in some cases. CLINICAL DECISIONS SHOULD BE BASED ON THE PRIMARY CLINICAL RECORDS. [facility] [employer] provides no warranty or guarantee of the accuracy or completeness of information in this document.
[2023-10-27 04:49] LABS: Lactic Acid 0.9 mmol/L (0.4-1.9)
[2023-10-27 04:51] LABS: AST(SGOT) 20 U/L (15-37); Alanine Aminotransfer ALT/SGPT 53 U/L (16-61); Albumin, Serum 3.9 g/dL (3.2-5.0); Alkaline Phosphatase 47 U/L (45-117); Anion Gap 5 (5-15); BUN 21 mg/dL (7-18); BUN/Creat Ratio 17.2 RATIO (10-20); Bilirubin, Direct 0.14 mg/dL (0.00-0.30); Calcium,Total 9.2 mg/dL (8.5-10.1); Chloride 103 mmol/L (98-107); Creatinine, Serum 1.22 mg/dL (0.70-1.30); EST Glomerular Filtration Rate 73 mL/min (>60); Est Glom Filt Rate - Afr Amer 88 mL/min (>60); Estimated Creatinine Clearance 74.91 ml/min; Globulin 3.7 g/dL (2.2-4.2); Glucose 98 mg/dL (74-106); Lipase 43 U/L (13-75); Potassium 3.6 mmol/L (3.5-5.1); Protein, Total 7.6 g/dL (6.4-8.2); Sodium Level 138 mmol/L (136-145)
--- NOTE | 2023-10-27 05:54 | CT_ITS ---
INDICATION: Kidney Stone right EXAMINATION: CT ABDOMEN AND PELVIS WITHOUT CONTRAST TECHNIQUE: Helically acquired images were obtained of the abdomen and pelvis without IV contrast. 2-D reconstructions reviewed. A radiation dose optimization technique was used for this scan. IV Contrast dosage and agent: None Oral contrast: None COMPARISON: None. FINDINGS: LOWER CHEST: No acute findings within the imaged lung bases. Heart size within normal limits. Small hiatal hernia present. LIVER: Homogeneous. No discrete mass. GALLBLADDER AND BILIARY TREE: Distended gallbladder with edematous wall. No radiopaque stones detected. No significant biliary ductal dilation. PANCREAS: No discrete mass or peripancreatic edema. SPLEEN: Normal size without discrete mass. ADRENAL GLANDS: Unremarkable. KIDNEYS AND URETERS: Normal renal size and position. No perinephric edema or hydronephrosis. No discrete mass. No tract stones identified. PERITONEUM: No significant free peritoneal fluid. No free air detected. RETROPERITONEUM: No retroperitoneal mass or pathologic fluid collection. BOWEL: No evidence of acute appendicitis. No bowel obstruction or significant bowel thickening. No focal inflammatory change. LYMPH NODES: No enlarged mesenteric or retroperitoneal lymph nodes. VESSELS: Tiny scattered atherosclerotic calcifications noted. URINARY BLADDER: Unremarkable as visualized. REPRODUCTIVE ORGANS: No pelvic masses. ABDOMINAL WALL: No acute findings or significant hernia defect. BONES: Intact with no suspicious osseous lesion. CT/Abdomen/Pelvis without Cont IMPRESSION: Distended gallbladder with edematous wall suggesting cholecystitis. Recommend further evaluation with gallbladder ultrasound. Mild atherosclerotic disease. Electronically Signed: Martínez Ely MD at 6:52 EST ,
[2023-10-27] MEDS: Ketorolac 15 MG/ML Vial IV (05:56)
[2023-10-27] MEDS: 0.9% Normal Saline (1000mL) 1,000 ML 250 ML IV (05:58)
[2023-10-27 06:10] VITALS: PULSE 100; RESP 19; O2SAT 100
--- NOTE | 2023-10-27 07:01 | US_ITS ---
INDICATION: ABDOMEN PAIN EXAMINATION: Ultrasound US Abdomen Limited (quadrant) TECHNIQUE: Walker scale and color doppler imaging was performed of the right upper quadrant. COMPARISON: CT scan of the abdomen and pelvis of the same day. FINDINGS: LIVER: There is normal echotexture. The liver measures about 17 cm in length. The portal vein is patent with normal hepatopedal flow. No focal hepatic lesion. There is no free fluid. GALLBLADDER AND BILIARY TREE: Solitary gallstone in the gallbladder neck measuring about 1.6 cm. Borderline thickening of the gallbladder wall measuring about 3 mm. No pericholecystic fluid is seen. The proximal common bile duct measures 5 mm, which is within normal limits for the patient''s age. Sonographic Weller''s sign: Negative. PANCREAS: The pancreas is obscured by bowel gas and not visualized. RIGHT KIDNEY: The right kidney measures 10.4 cm in length. The renal cortex measures 1.2 cm. No evidence of hydronephrosis. US/Gallbladder IMPRESSION: Gallstone in the gallbladder neck with borderline thickening of the gallbladder wall. If clinically indicated, nuclear medicine biliary scan might be of further value. Electronically Signed: Pravin Montesinos MD at 8:17 EST ,
[2023-10-27 07:25] LABS: Bacteria 0 SEEN /hpf (None Seen); Red Blood Cells-Urine 0 SEEN /hpf (0-5); Squamous Epithelial Cells - UA 0 SEEN /hpf (0-5)
[2023-10-27 07:54] LABS: Color, Urine Yellow (Yellow); Glucose, Dipstick Normal (Normal); Ketone-Dipstick 50 mg/dl (Negative); Leukocyte Esterase-Dipstick 25 /ul (Negative); Nitrite-Dipstick Negative (Negative); Occult Blood-Urine Negative /ul (Negative); Protein-Dipstick 15 mg/dl (Negative); Urine Bilirubin Dipstick Negative (Negative); Urine Clarity Clear (Clear); Urine Urobilinogen Normal (Normal)
[2023-10-27 08:23] LABS: Mucous, Urine 2+ /hpf (<or=2+); White Blood Cells 0-5 SEEN /hpf (0-5)
[2023-10-27 08:59] VITALS: BP 123/92; PULSE 67; RESP 14; TEMP 36.9; O2SAT 98
--- NOTE | 2023-10-27 09:31 | NURSING ---
NO OLD EKGS
[2023-10-27 10:28] VITALS: BP 131/81; PULSE 87; RESP 16; TEMP 36.7; O2SAT 98
== END 2023-10-27 10:32 | disposition home or self-care (01) ==
PROVIDERS: Emergency Provider Emergency Medicine; Visit Provider Emergency Medicine
DX: R10.12 Left upper quadrant pain (principal); R03.0 Elevated blood-pressure reading, without diagnosis of hypertension; K80.20 Calculus of gallbladder without cholecystitis without obstruction; F17.200 Nicotine dependence, unspecified, uncomplicated
CPT/HCPCS: 74176; 76705; 80048; 80076; 81001; 83605; 83690; 85025; 85610; 93005; 96361; 96374; 96375; 99285; J7030; A4216; J2405

== ENCOUNTER 2024-03-18 00:49 | Inpatient (IN) | payer SELFPAY ==
[2024-03-18] VITALS (10 sets, daily range): BP systolic 118–182; BP diastolic 85–119; PULSE 50–106; RESP 16–18; TEMP 36.5–37.1; O2SAT 93–100; BMI 25.4; BMI 24.9
--- NOTE | 2024-03-18 01:44 | EDS_ITS ---
HPI HPI - GI History of Present Illness Chief Complaint: Other, Pain/Inj Informant: patient Abdominal Pain/Flank Pain Onset: Hours Context: Sudden Onset (woke up from sleep w/ n/v/pain) Timing: Continuous Quality: Aching Location: Epigastric Current Severity: Severe Maximum Severity: Severe Worsened by: Nothing Relieved by: Nothing Nausea/Vomiting/Emesis GI Symptom: Positive for Nausea and Vomiting Quality: Positive for Nonbilious; Negative for Blood streaks, Coffee ground or Hematemesis Severity: Severe Diarrhea/Melena/Hematochezia GI Symptom: Negative for Diarrhea, Melena or Hematochezia Narrative Narrative: 33-year-old male states he has had episodes like this before every 6 months or so, epigastric discomfort and intense vomiting, trouble stopping. Very uncomfortable. Somewhat been going on for couple hours but he woke up this way and cannot stop vomiting. History of alcohol use last time he drank was several days ago. States he woke up from sleep like this and was not triggered by meals necessarily. It has been random in the past as well. Never been diagnosed with pancreatitis no history of any abdominal surgeries. PFSH PFS Medical History Alcohol abuse Home Medications ?Medication ?Instructions ?Recorded ?Last Taken ?Type NK 03/18/24 Unknown History Allergy/AdvReac Type Severity Reaction Status Date / Time No Known Allergies Allergy Verified 10/27/23 04:10 Social History household members: none Smoking Status: Heavy Smoker (>10/day) substance use type: does not use ROS ROS ED Constitutional Constitutional ED: Denies chills or fever(s) Eyes Eyes: Denies change in vision or diplopia ENT ENT ED: Denies rhinorrhea or sore throat Cardiovascular Cardiovascular: Denies chest pain or palpitations Respiratory/Chest Respiratory/Chest: Denies cough or dyspnea Gastrointestinal Gastrointestinal: Reports abdominal pain, nausea and vomiting; Denies diarrhea Genitourinary Genitourinary ED: Denies dysuria or hematuria Musculoskeletal Musculoskeletal: Denies back pain or neck pain Integumentary Denies abscess or rash Neurologic Neurologic: Denies headache(s), paresthesias or weakness Psychiatric Psychiatric: Denies suicidal thoughts EXAM Physical Exam Const Vital Signs: 03/18/24 00:51 03/18/24 00:55 03/18/24 02:50 Temperature 97.7 F L Temperature Source Oral Pulse Rate 106 H 70 Respiratory Rate 18 18 Respiratory Effort Labored Respiratory Pattern Tachypnea Blood Pressure 166/119 H 174/94 H Blood Pressure Mean 134 120 Pulse Ox 93 100 Oxygen Delivery Method Room Air Room Air 03/18/24 04:00 03/18/24 06:00 Temperature Temperature Source Pulse Rate 50 L 81 Respiratory Rate 16 18 Respiratory Effort Respiratory Pattern Blood Pressure 182/115 H 134/105 H Blood Pressure Mean 137 114 Pulse Ox 99 100 Oxygen Delivery Method Room Air Room Air Positive well nourished and well developed Constitutional Narrative: Appears malaised but in no distress. Holding a bag of nonbilious nonbloody emesis. General Appearance ED: well developed and NAD HEENT Reports moist mucous membranes normocephalic and atraumatic Eyes PERRL and EOMs intact bilaterally Neck full ROM and supple Resp normal respiratory effort and clear to auscultation bilaterally Cardio regular rate, regular rhythm and no murmurs GI non-distended GI Narrative: Tender epigastrium, no guarding or rebound. No Weller sign or other areas of tenderness. Auscultation: normoactive bowel sounds Palpation: soft Back/Spine no CVA tenderness General Back: other FROM Extremity normal to inspection General Extremety ED: Negative for edema, pulses abnormal or tenderness General Extremity: Negative for edema or pulses abnormal Neuro oriented x3, CN's II-XII intact bilaterally and no sensory deficits noted Sensorium / Orientation: awake and alert Motor Exam: strength 5/5 throughout Psych mental status grossly normal and thought process normal Skin no rashes or lesions noted and no wounds Skin Narrative: Mildly sweaty MDM MDM MDM Narrative Medical decision making narrative: Reviewed his labs he has a leukocytosis but normal liver enzymes and lipase. Initially gave him medications treating gastritis, eventually helped his nausea with Reglan but he was still having a lot of pain despite morphine. Looking at old records, he was here in October, he states the pain feels the same as it did then, and he had a CT and ultrasound that were concerning for acute cholecystitis with a stone stuck in the neck of the gallbladder. However his pain resolved send surgery did not think he needed to be admitted, the patient admits that he never followed up with surgery as it was advised. Given all of this, onset of discharging him with suspected gastritis, I am going to treat him with Toradol, and plan is to get an ultrasound in the morning to further evaluate for the possibility of acute cholecystitis now that he has a leukocytosis and persistent pain. After the Toradol his pain is improved and on exam he has barely tender in the right upper quadrant epigastrium area. Ultrasound pending and results/disposition checked out to oncoming ED physician accordingly. If the ultrasound shows no radiographic suspicion for cholecystitis I would support close outpatient follow-up with surgery. Lab Data Attestation: I reviewed the patient's lab results. Labs: Laboratory Results - last 24 hr 03/18/24 01:50 WBC 12.0 H RBC 4.97 Hgb 15.2 Hct 43.2 MCV 86.9 MCH 30.6 MCHC 35.2 RDW Std Deviation 38.5 RDW Coeff of Kay 12.2 Plt Count 261 MPV 9.8 Immature Gran % (Auto) 0.300 Neut % (Auto) 61.6 Lymph % (Auto) 27.8 [place] % (Auto) 7.0 Eos % (Auto) 2.7 Baso % (Auto) 0.6 Absolute Neuts (auto) 7.4 Absolute Lymphs (auto) 3.34 Nucleated RBC % 0 Sodium 137 Potassium 3.5 Chloride 105 Carbon Dioxide 27.0 Anion Gap 5 BUN 14 Creatinine 1.04 Estim Creat Clear Calc 87.88 Est GFR (MDRD) Af Amer 106 Est GFR (MDRD) Non-Af 87 BUN/Creatinine Ratio 13.5 Glucose 126 H Calcium 8.9 Total Bilirubin 0.20 AST 18 ALT 44 Alkaline Phosphatase 52 Total Protein 7.3 Albumin 3.6 Globulin 3.7 Albumin/Globulin Ratio 1.0 Lipase 42 Discharge Plan Triage Chief Complaint: Other, Pain/Inj ED Provider: Savage Yanes Dx/Rx/DC Orders Prescriptions: No Action NK Primary Care Provider: Care Physician,No Primary Referrals: Care Physician,No Primary [Primary Care Provider] - Print Language: Iranian
[2024-03-18] MEDS: Mag /Aluminum/Simeth WCH UDC 30 ML ORAL.SUSP PO (01:53)
[2024-03-18] MEDS: 0.9% Normal Saline (1000mL) 1,000 ML 999 ML IV (01:53)
[2024-03-18] MEDS: Lidocaine 2% Viscous15 ML UDC 15 ML PO (01:53)
[2024-03-18] MEDS: Morphine 4 MG/ML Syringe IV (01:53)
[2024-03-18] MEDS: Ondansetron 4 MG/2 ML Vial IV (01:53)
[2024-03-18 01:56] LABS: Absolute Lymphocyte Count 3.34 X10^3/uL (0.83-4.51); Absolute Neutrophil Count 7.4 X10^3/uL (2.0-7.7); Basophil# 0.07 X10^3/uL; Basophil% 0.6 % (0-1); Eosinophil# 0.32 X10^3/uL; Eosinophils% 2.7 % (0-5); Hematocrit 43.2 % (40-54); Hemoglobin 15.2 g/dL (13.0-16.5); Lymphocyte # 3.34 X10^3/ul (0.83-4.51); Lymphocyte % 27.8 % (19-41); Mean Corp Hgb Conc 35.2 g/dL (32-36); Mean Corpuscular Hgb 30.6 pg (27.0-32.0); Mean Corpuscular Volume 86.9 fL (80-94); Mean Platelet Vol. 9.8 fl (6.2-12.0); Monocyte# 0.84 X10^3/uL; NRBC Flagged by Analyzer 0 % (0-5); Neutrophil % 61.6 % (47-70); Platelet Count 261 K/mm3 (150-450); RBC Distribution Width CV 12.2 % (11.6-14.6); RBC Distribution Width SD 38.5 fl (35.1-43.9); Red Blood Count 4.97 M/mm3 (4.6-6.2)
[2024-03-18 02:14] LABS: AST(SGOT) 18 U/L (15-37); Alanine Aminotransfer ALT/SGPT 44 U/L (16-61); Albumin, Serum 3.6 g/dL (3.2-5.0); Alkaline Phosphatase 52 U/L (45-117); Anion Gap 5 (5-15); BUN 14 mg/dL (7-18); BUN/Creat Ratio 13.5 RATIO (10-20); Calcium,Total 8.9 mg/dL (8.5-10.1); Chloride 105 mmol/L (98-107); Creatinine, Serum 1.04 mg/dL (0.70-1.30); EST Glomerular Filtration Rate 87 mL/min (>60); Est Glom Filt Rate - Afr Amer 106 mL/min (>60); Estimated Creatinine Clearance 87.88 ml/min; Globulin 3.7 g/dL (2.2-4.2); Glucose 126 mg/dL (74-106); Lipase 42 U/L (13-75); Potassium 3.5 mmol/L (3.5-5.1); Protein, Total 7.3 g/dL (6.4-8.2); Sodium Level 137 mmol/L (136-145)
[2024-03-18] MEDS: Metoclopramide 10 MG/2 ML Vial 5 MG IV (02:55)
[2024-03-18] MEDS: Hyoscyamine Sulfate 0.125 MG Tablet 0.25 MG SL (02:55)
[2024-03-18] MEDS: Ketorolac 30 MG/ML Syringe IV (03:44)
--- NOTE | 2024-03-18 03:46 | US_ITS ---
INDICATION: stones, pain, n/v, elev WBC EXAMINATION: Ultrasound US Abdomen RUQ (limited) TECHNIQUE: Walker scale and color doppler imaging was performed of the right upper quadrant. COMPARISON: None. FINDINGS: LIVER: 18.6 cm length. Unremarkable. GALLBLADDER Size: Distended. Stones: Large mobile stone within the gallbladder neck. Wall thickness: Thickened. 9 mm. Pericholecystic fluid: Small. Sonographic Weller sign: Positive. EXTRAHEPATIC BILE DUCTS: Common bile duct 5 mm not dilated. PANCREAS: Visualized portions unremarkable. RIGHT KIDNEY: No hydronephrosis. ASCITES: None. US/Gallbladder IMPRESSION: Cholelithiasis with findings consistent with acute cholecystitis. Electronically Signed: Kenyatta Watson MD at 7:43 EDT ,
--- NOTE | 2024-03-18 08:51 | NURSING ---
MED SURG AL ABD PAIN, ACUTE CHOLECYSTITIS, ETOH ABUSE
--- NOTE | 2024-03-18 08:52 | NURSING ---
DR AMADO FOR DR WILKINS
--- NOTE | 2024-03-18 09:10 | PCM.PN.HOSP ---
Subjective Subjective 33-year-old male presented to the hospital with abdominal pain. Found to have cholecystitis. Medicine is being consulted secondary to his alcohol use history where he will go several weeks where he will drink every day, whiskey, and then can go a couple of weeks with barely having any drinks. States he has not had any alcoholic beverages last couple of days with his last drink being on Sunday. Objective Data Objective Data Vital Signs: Vital Signs Temp Pulse Resp BP Pulse Ox O2 Del Method 97.7 F L 83 16 129/85 H 100 Room Air 03/18/24 08:00 03/18/24 08:00 03/18/24 08:00 03/18/24 08:00 03/18/24 08:00 03/18/24 08:00 Oxygen Delivery Method Room Air Weight: 153 lb Body Mass Index (BMI) 25.4 Intake & Output: Intake and Output for Last 24 Hours 03/17/24 03/18/24 03/19/24 03:59 03:59 03:59 Intake Total 1000 / 1000 Balance 1000 / 1000 Lab / Micro Data 03/19/24 05:59 03/19/24 05:59 Labs: Laboratory Results - last 24 hr 03/18/24 01:50: WBC 12.0 H, RBC 4.97, Hgb 15.2, Hct 43.2, MCV 86.9, MCH 30.6, MCHC 35.2, RDW Std Deviation 38.5, RDW Coeff of Kay 12.2, Plt Count 261, MPV 9.8, Immature Gran % (Auto) 0.300, Neut % (Auto) 61.6, Lymph % (Auto) 27.8, [place] % (Auto) 7.0, Eos % (Auto) 2.7, Baso % (Auto) 0.6, Absolute Neuts (auto) 7.4, Absolute Lymphs (auto) 3.34, Nucleated RBC % 0, Sodium 137, Potassium 3.5, Chloride 105, Carbon Dioxide 27.0, Anion Gap 5, BUN 14, Creatinine 1.04, Estim Creat Clear Calc 87.88, Est GFR (MDRD) Af Amer 106, Est GFR (MDRD) Non-Af 87, BUN/Creatinine Ratio 13.5, Glucose 126 H, Calcium 8.9, Total Bilirubin 0.20, AST 18, ALT 44, Alkaline Phosphatase 52, Total Protein 7.3, Albumin 3.6, Globulin 3.7, Albumin/Globulin Ratio 1.0, Lipase 42 Radiography Diagnostic Testing: Radiology Impression Gallbladder Ultrasound 03/18/24 03:46 IMPRESSION: Cholelithiasis with findings consistent with acute cholecystitis. Electronically Signed: Kenyatta Watson MD at 7:43 EDT Reading Location ID and State: [address] [place] [address] Tel , Service support , Physical Exam Narrative General: Alert, Oriented x3, Cooperative, No apparent distress HEENT: Atraumatic, PERRLA, EOMI, Normocephalic Oral: Moist Mucosa Neck: Supple, No JVD Lungs: Diminished, Normal air movement, No rhonchi, No wheeze, No rales Cardiovascular: Regular rate, Regular Rhythm, Normal S1, Normal S2, No murmurs Abdomen: Soft, RUQ TTP, Non-Distended, No Hepato-splenomegaly Extremities: No edema, Capillary Refill Less than 3 Seconds Skin: No rashes, No breakdown Musculoskeletal: No Tenderness to Palpation of Joints or Extremities Neurological: No focal neurological deficits, Motor Exam 5/5 strength throughout, Sensory exam intact to light touch and pain Psych/Mental Status: Normal Affect, Appropriate Assessment & Plan Assessment/Plan (1) Acute cholecystitis: PLAN: Plan 1. Acute cholecystitis ?Continue Zosyn ? N.p.o. ? IV fluids ? Plan for operative intervention tomorrow ? Pain management per primary 2. Alcohol use disorder ? As he is likely n.p.o. for surgery we will place him on CIWA with IV Ativan available ? Since his last drink was on Sunday currently he has a CIWA score of 0 unlikely to go into withdrawal DVT: Per primary Charges/Coding Visit Charges Inpatient E&M: 86968 Subs Hosp L2
[2024-03-18] MEDS: Piperacil/Tazobactam 4.5 GM in 0.9% Normal Saline (100mL MB+) 100 ML IV (09:11)
--- NOTE | 2024-03-18 09:44 | PCM.HP.STD ---
HPI - General General Date of Admission: 03/18/24 Chief Complaint: Acute on chronic abdominal pain HPI Narrative VIKASH SHER, is a 33 M who presents to [facility] with complaints of acute exacerbation of abdominal pain that he states has been present for some 3 years. He shares the pain usually improves with measures like taking a healthy dose of Tylenol, however, last evening it did not notes when he decided to seek evaluation. He shares that the pain typically awakens him out of a sleep. It is associated with symptoms of nausea, vomiting, fever, chills, and drowsiness. He denies any associated weight loss. He shares that his whole life he has battled constipation and has been no different of late. Patient's ER workup is notable for CBC that demonstrates mild leukocytosis. CMP is within normal limits. Ultrasound was obtained of the gallbladder showing evidence of acute cholecystitis per radiology with a thickened gallbladder wall at 9 mm, positive sonographic Weller sign, and a small amount of pericholecystic fluid. Notably patient was evaluated in October of this year for similar symptoms. He was reportedly given follow-up with surgery which she never made. He shares that his pain persisted since that time but generally was better than it had been. Patient has no formal diagnosis and only past surgical history of a tooth operation as a child. He does admit to drinking, sometimes heavily, on a regular basis. He shares that some days he will drink all day long but has generally been trying to cut back as he was just recently advised of the risks he is running with this habit and the need to try to detox. PFSH Medical History Alcohol abuse Home Medications ?Medication ?Instructions ?Recorded ?Last Taken ?Type NK 03/18/24 Unknown History Allergy/AdvReac Type Severity Reaction Status Date / Time No Known Allergies Allergy Verified 10/27/23 04:10 Social History household members: none Smoking Status: Heavy Smoker (>10/day) substance use type: does not use ROS Constitutional Constitutional: Reports chills and fever(s); Denies weight loss Gastrointestinal Gastrointestinal: Reports abdominal pain, constipation, nausea and vomiting Vital Signs Vital Signs Vital Signs: 03/18/24 00:51 03/18/24 00:55 03/18/24 02:50 Temperature 97.7 F L Temperature Source Oral Pulse Rate 106 H 70 Respiratory Rate 18 18 Respiratory Effort Labored Respiratory Pattern Tachypnea Blood Pressure 166/119 H 174/94 H Blood Pressure Mean 134 120 Pulse Ox 93 100 Oxygen Delivery Method Room Air Room Air 03/18/24 04:00 03/18/24 06:00 03/18/24 08:00 Temperature 97.7 F L Temperature Source Oral Pulse Rate 50 L 81 83 Respiratory Rate 16 18 16 Respiratory Effort Respiratory Pattern Blood Pressure 182/115 H 134/105 H 129/85 H Blood Pressure Mean 137 114 99 Pulse Ox 99 100 100 Oxygen Delivery Method Room Air Room Air Room Air 03/18/24 09:15 Temperature 98.1 F Temperature Source Pulse Rate 62 Respiratory Rate 18 Respiratory Effort Respiratory Pattern Blood Pressure 122/89 H Blood Pressure Mean 100 Pulse Ox 99 Oxygen Delivery Method Weight Weight: 149 lb 12.8 oz Body Mass Index (BMI) 24.9 Physical Exam Const alert and oriented x3 General Appearance: cooperative GI GI Narrative: Slender, tone abdominal wall, nondistended, no visible herniation, tender to palpation right upper quadrant with mildly positive Weller sign focally Results Lab / Micro Data 03/18/24 01:50 03/18/24 01:50 Labs: Laboratory Results - last 24 hr 03/18/24 01:50: WBC 12.0 H, RBC 4.97, Hgb 15.2, Hct 43.2, MCV 86.9, MCH 30.6, MCHC 35.2, RDW Std Deviation 38.5, RDW Coeff of Kay 12.2, Plt Count 261, MPV 9.8, Immature Gran % (Auto) 0.300, Neut % (Auto) 61.6, Lymph % (Auto) 27.8, [place] % (Auto) 7.0, Eos % (Auto) 2.7, Baso % (Auto) 0.6, Absolute Neuts (auto) 7.4, Absolute Lymphs (auto) 3.34, Nucleated RBC % 0, Sodium 137, Potassium 3.5, Chloride 105, Carbon Dioxide 27.0, Anion Gap 5, BUN 14, Creatinine 1.04, Estim Creat Clear Calc 87.88, Est GFR (MDRD) Af Amer 106, Est GFR (MDRD) Non-Af 87, BUN/Creatinine Ratio 13.5, Glucose 126 H, Calcium 8.9, Total Bilirubin 0.20, AST 18, ALT 44, Alkaline Phosphatase 52, Total Protein 7.3, Albumin 3.6, Globulin 3.7, Albumin/Globulin Ratio 1.0, Lipase 42 Imaging Radiology Impression Gallbladder Ultrasound 03/18/24 03:46 IMPRESSION: Cholelithiasis with findings consistent with acute cholecystitis. Electronically Signed: Kenyatta Watson MD at 7:43 EDT , Assessment & Plan Assessment/Plan (1) Acute cholecystitis: PLAN: Patient is a 33-year-old male with a history of chronic right upper quadrant abdominal pain who presents for acute exacerbation of this pain that is associated with nausea, vomiting, and chills. He has had previous workup for this issue that identified a stone within the gallbladder neck. This was confirmed on his most recent ultrasound, however, there are new features that suggest evidence of acute cholecystitis. Thus I have recommended laparoscopic cholecystectomy with intraoperative cholangiography and described the procedure as well as postprocedure recovery in detail. He denied any further questions after this explanation and I then shared with him that I would plan to consult the hospitalist service for comanagement of his history of alcohol abuse. He suggests his last drinking binge was 48 hours ago. This certainly puts him at risk for perioperative delirium tremens and withdrawal symptoms. Their input is greatly appreciated. For now patient will be held n.p.o. with empiric IV antibiotic therapy in anticipation of surgery later today. He should be consented for laparoscopic cholecystectomy with intraoperative cholangiography. Juan eVrma MD General Surgery Endocrine Surgery Pager: [facility] [address] [place] [address], [address] [place] [id number] Office: [phone] Charges/Coding Visit Charges Inpatient E&M: 17582 Init Hosp L2
[2024-03-18] MEDS: 0.9% Normal Saline (1000mL) 1,000 ML 125 ML IV ×2 (09:55→17:45)
[2024-03-18] MEDS: Piperacil/Tazobactam 3.375 GM in 0.9% Normal Saline (50mL MB+) 50 ML IV (21:38)
[2024-03-18] MEDS: Acetaminophen 500 MG Tablet PO (23:33)
[2024-03-19] VITALS (14 sets, daily range): BP systolic 98–134; BP diastolic 56–99; PULSE 78–98; RESP 14–18; TEMP 36.3–37.2; O2SAT 92–100; BMI 24.9
[2024-03-19] MEDS: 0.9% Normal Saline (1000mL) 1,000 ML 125 ML IV ×3 (01:51→17:29)
--- NOTE | 2024-03-19 05:00 | EKG12_ITS ---
Test Reason : AM EKG Blood Pressure : / mmHG Vent. Rate : 077 BPM Atrial Rate : 077 BPM P-R Int : 154 ms QRS Dur : 090 ms QT Int : 370 ms P-R-T Axes : 045 068 043 degrees QTc Int : 418 ms Normal sinus rhythm Normal ECG No previous ECGs available Confirmed by ROSENDA DOTY, MARCUS ([id number]), editor dictionary CATIE MCCORD ([id number]) on 03/21/2024 9:38:07 AM Referred By: AL Confirmed By:ZEINAB HERZOG MD
[2024-03-19] MEDS: Piperacil/Tazobactam 3.375 GM in 0.9% Normal Saline (50mL MB+) 50 ML IV ×2 (05:19→13:20)
[2024-03-19 06:50] LABS: Absolute Lymphocyte Count 1.56 X10^3/uL (0.83-4.51); Absolute Neutrophil Count 8.1 X10^3/uL (2.0-7.7); Basophil# 0.04 X10^3/uL; Basophil% 0.4 % (0-1); Eosinophil# 0.25 X10^3/uL; Eosinophils% 2.4 % (0-5); Hematocrit 42.8 % (40-54); Hemoglobin 14.4 g/dL (13.0-16.5); Lymphocyte # 1.56 X10^3/ul (0.83-4.51); Lymphocyte % 14.7 % (19-41); Mean Corp Hgb Conc 33.6 g/dL (32-36); Mean Corpuscular Hgb 30.6 pg (27.0-32.0); Mean Corpuscular Volume 90.9 fL (80-94); Mean Platelet Vol. 10.1 fl (6.2-12.0); Monocyte# 0.61 X10^3/uL; Monocyte% 5.7 % (0-10); NRBC Flagged by Analyzer 0 % (0-5); Neutrophil # 8.12 X10^3/uL (2.7-7.7); Neutrophil % 76.3 % (47-70); Platelet Count 212 K/mm3 (150-450); RBC Distribution Width CV 12.4 % (11.6-14.6); RBC Distribution Width SD 41.1 fl (35.1-43.9); Red Blood Count 4.71 M/mm3 (4.6-6.2); White Blood Count 10.6 K/mm3 (4.4-11.0)
[2024-03-19 07:05] LABS: International Normalized Ratio 0.9; Prothrombin Time (Protime)PT. 12.6 SECONDS (11.7-14.9)
[2024-03-19 07:06] LABS: Partial Thromboplast Time 26.7 Seconds (24.1-36.2)
[2024-03-19 07:26] LABS: ALB/GLOB Ratio 0.9 RATIO (0.9-2.4); AST(SGOT) 25 U/L (15-37); Alanine Aminotransfer ALT/SGPT 59 U/L (16-61); Albumin, Serum 3.1 g/dL (3.2-5.0); Alkaline Phosphatase 51 U/L (45-117); Anion Gap 3 (5-15); BUN 9 mg/dL (7-18); BUN/Creat Ratio 9.6 RATIO (10-20); Calcium,Total 8.6 mg/dL (8.5-10.1); Chloride 107 mmol/L (98-107); Creatinine, Serum 0.94 mg/dL (0.70-1.30); EST Glomerular Filtration Rate 98 mL/min (>60); Est Glom Filt Rate - Afr Amer 119 mL/min (>60); Estimated Creatinine Clearance 97.23 ml/min; Globulin 3.5 g/dL (2.2-4.2); Glucose 82 mg/dL (74-106); Potassium 4.4 mmol/L (3.5-5.1); Protein, Total 6.6 g/dL (6.4-8.2); Sodium Level 139 mmol/L (136-145)
--- NOTE | 2024-03-19 09:02 | PCM.PN.SRG ---
Subjective Subjective Patient was evaluated resting comfortably in bed. He denies any abdominal pain at rest. He denies any nausea, vomiting. He note shaving hunger-like pains. He denies any fever. Objective Data Objective Data Vital Signs: Vital Signs Temp Pulse Resp BP Pulse Ox O2 Del Method 98.7 F 78 18 133/99 H 100 Room Air 03/19/24 08:36 03/19/24 08:36 03/19/24 08:36 03/19/24 08:36 03/19/24 08:36 03/19/24 08:36 Oxygen Delivery Method Room Air Weight: 149 lb 12.8 oz Body Mass Index (BMI) 24.9 Intake & Output: Intake and Output for Last 24 Hours 03/17/24 03/18/24 03/19/24 23:59 23:59 23:59 Intake Total 2079.17 / 2079.17 1050 / 1050 Balance 2078.17 / 2078.17 1050 / 1050 Lab / Micro Data 03/19/24 05:59 03/19/24 05:59 Labs: Laboratory Results - last 24 hr 03/19/24 05:59: WBC 10.6, RBC 4.71, Hgb 14.4, Hct 42.8, MCV 90.9, MCH 30.6, MCHC 33.6, RDW Std Deviation 41.1, RDW Coeff of Kay 12.4, Plt Count 212, MPV 10.1, Immature Gran % (Auto) 0.500, Neut % (Auto) 76.3 H, Lymph % (Auto) 14.7 L, [place] % (Auto) 5.7, Eos % (Auto) 2.4, Baso % (Auto) 0.4, Absolute Neuts (auto) 8.1 H, Absolute Lymphs (auto) 1.56, Nucleated RBC % 0, PT 12.6, INR 0.9, APTT 26.7, Sodium 139, Potassium 4.4, Chloride 107, Carbon Dioxide 29.0, Anion Gap 3 L, BUN 9, Creatinine 0.94, Estim Creat Clear Calc 97.23, Est GFR (MDRD) Af Amer 119, Est GFR (MDRD) Non-Af 98, BUN/Creatinine Ratio 9.6 L, Glucose 82, Calcium 8.6, Total Bilirubin 0.50, AST 25, ALT 59, Alkaline Phosphatase 51, Total Protein 6.6, Albumin 3.1 L, Globulin 3.5, Albumin/Globulin Ratio 0.9 Physical Exam GI GI Narrative: Abdomen- tender to palpation in the RUQ. Assessment & Plan Assessment/Plan (1) Acute cholecystitis: PLAN: I am following this patient in conjunction with Dr. Verma. He has independently evaluated this patient. Plan to proceed to the operating room today for a laparoscopic cholecystectomy with IOC with Dr. Verma. Patient has had the opportunity to ask and have questions answered. Patient verbally understands and agrees with the plan. Charges/Coding Visit Charges Inpatient E&M: 09822 Subs Hosp L1 (No charge)
--- NOTE | 2024-03-19 09:38 | PN.HOSP_ITS ---
Subjective Subjective Doing well, CIWA score of 0, likely outside the window for withdrawal at this point Objective Data Objective Data Vital Signs: Vital Signs Temp Pulse Resp BP Pulse Ox O2 Del Method 98.7 F 78 18 133/99 H 100 Room Air 03/19/24 08:36 03/19/24 08:36 03/19/24 08:36 03/19/24 08:36 03/19/24 08:36 03/19/24 08:36 Oxygen Delivery Method Room Air Weight: 149 lb 12.8 oz Body Mass Index (BMI) 24.9 Intake & Output: Intake and Output for Last 24 Hours 03/18/24 03/19/24 03/20/24 03:59 03:59 03:59 Intake Total 1000 / 1000 9.17 / 2128. 50 / 50 Balance 1000 / 1000 2128. / 2128. 50 / 50 Lab / Micro Data 03/19/24 05:59 03/19/24 05:59 Labs: Laboratory Results - last 24 hr 03/19/24 05:59: WBC 10.6, RBC 4.71, Hgb 14.4, Hct 42.8, MCV 90.9, MCH 30.6, MCHC 33.6, RDW Std Deviation 41.1, RDW Coeff of Kay 12.4, Plt Count 212, MPV 10.1, Immature Gran % (Auto) 0.500, Neut % (Auto) 76.3 H, Lymph % (Auto) 14.7 L, [place] % (Auto) 5.7, Eos % (Auto) 2.4, Baso % (Auto) 0.4, Absolute Neuts (auto) 8.1 H, Absolute Lymphs (auto) 1.56, Nucleated RBC % 0, PT 12.6, INR 0.9, APTT 26.7, Sodium 139, Potassium 4.4, Chloride 107, Carbon Dioxide 29.0, Anion Gap 3 L, BUN 9, Creatinine 0.94, Estim Creat Clear Calc 97.23, Est GFR (MDRD) Af Amer 119, Est GFR (MDRD) Non-Af 98, BUN/Creatinine Ratio 9.6 L, Glucose 82, Calcium 8.6, Total Bilirubin 0.50, AST 25, ALT 59, Alkaline Phosphatase 51, Total Protein 6.6, Albumin 3.1 L, Globulin 3.5, Albumin/Globulin Ratio 0.9 Physical Exam Narrative General: Alert, Oriented x3, Cooperative, No apparent distress HEENT: Atraumatic, PERRLA, EOMI, Normocephalic Oral: Moist Mucosa Neck: Supple, No JVD Lungs: Diminished, Normal air movement, No rhonchi, No wheeze, No rales Cardiovascular: Regular rate, Regular Rhythm, Normal S1, Normal S2, No murmurs Abdomen: Soft, RUQ TTP, Non-Distended, No Hepato-splenomegaly Extremities: No edema, Capillary Refill Less than 3 Seconds Skin: No rashes, No breakdown Musculoskeletal: No Tenderness to Palpation of Joints or Extremities Neurological: No focal neurological deficits, Motor Exam 5/5 strength throughout, Sensory exam intact to light touch and pain Psych/Mental Status: Normal Affect, Appropriate Assessment & Plan Assessment/Plan (1) Acute cholecystitis: PLAN: Plan 1. Acute cholecystitis ?Continue Zosyn ? N.p.o. ? IV fluids ? Plan for operative intervention tomorrow ? Pain management per primary 2. Alcohol use disorder ? As he is likely n.p.o. for surgery we will place him on CIWA with IV Ativan available ? Since his last drink was on Sunday currently he has a CIWA score of 0 unlikely to go into withdrawal ? Will sign off plan for surgery today. Continue with CIWA protocols during the duration of his hospitalization and Ativan is available if needed DVT: Per primary Charges/Coding Visit Charges Inpatient E&M: 58661 Subs Hosp L2
--- NOTE | 2024-03-19 10:28 | PRE.ANES_ITS ---
ASA Classification* ASA Classification ASA Classification: 2 Assessment & Plan Anesthesia* Anesthesia Assessment Anesthesia Assessment: Discussed sedation and/or anesthesia options, risks, benefits, and alternatives with patient/parents/legal guardian/POA. Questions invited. The patient/parents/legal guardian/POA seems to understand and agrees to proceed with anesthesia plan. Reviewed the physical assessment, medical history, allergy history and patient home medications list prior to surgery/procedure/anesthetic and documented any changes. Performed airway and anesthesia risk assessments. Anesthesia Type Anesthesia Type: General Anesthesia Focused Assessment* Temperature: 98.7 F Pulse Rate: 78 Blood Pressure: 133/99 Respiratory Rate: 18 Pulse Ox: 100 Airway Assessment Mouth opens: >3 cm Mallampati Score: II Focused Labs Anesthesia Preop lab: CBC WBC 10.6 K/mm3 (4.4-11.0) 03/19/24 05:59 RBC 4.71 M/mm3 (4.6-6.2) 03/19/24 05:59 Hgb 14.4 g/dL (13.0-16.5) 03/19/24 05:59 Hct 42.8 % (40-54) 03/19/24 05:59 Plt Count 212 K/mm3 (150-450) 03/19/24 05:59 CHEMISTRY Potassium 4.4 mmol/L (3.5-5.1) 03/19/24 05:59 Sodium 139 mmol/L (136-145) 03/19/24 05:59 BUN 9 mg/dL (7-18) 03/19/24 05:59 Creatinine 0.94 mg/dL (0.70-1.30) 03/19/24 05:59 Glucose 82 mg/dL (74-106) 03/19/24 05:59 COAG PT 12.6 SECONDS (11.7-14.9) 03/19/24 05:59 Pre-Assessment Diagnosis/Proposed Procedure Planned Operative Procedure(s): Laproscopic Cecilia Anesthesia History Anesthesia History - convention services manager: Anesthesia History - convention services manager Hx Hospitalization Any Problems With Anesthesia No 03/18/24 22:14 Cholinesterase deficiency No 03/18/24 22:14 You/Your Family Experience No 03/18/24 22:14 fever (hyperthermia) with Relationship Recent Exposure to Contagious No 03/18/24 22:14 Disease Does patient have nerve No 03/18/24 22:14 stimulator Patient instructed to have No 03/18/24 22:14 device shut off --Does patient have Pacemaker No 03/19/24 08:00 or ICD? When Was Last Pacemaker Check QUESTION #4 FULL TEXT: You/Your Family Experience fever (hyperthermia) with Anesthesia Last Oral Intake Last Oral intake: Last Oral Intake NPO since 00:00 03/19/24 08:00 Meds taken in AM with sips of No 03/19/24 08:00 water? Meds patient instructed to take am of surgery PONV PONV - convention services manager: PONV - convention services manager Female HX of Motion Sickness HX of N/V After Surgery Non-Smoker Duration of Surgery greater than 60 minutes Number of Risk Factors PONV Score Height & Weight Height & Weight: Anesthesia: Height & Weight Height 5 ft 5 in 03/19/24 08:00 Weight: 67.948 kg 03/19/24 08:00 Body Mass Index (BMI) 24.9 03/19/24 08:00 Respiratory Assessment Respiratory Assessment - convention services manager: Respiratory Tract Infection Hx - convention services manager Hx Respiratory Tract Infection No 03/18/24 22:14 STOP Sleep Apnea STOP Sleep Apnea - convention services manager: STOP Sleep Apnea - convention services manager Hx Hypertension No 03/18/24 09:39 Hx Sleep Apnea No 03/18/24 09:39 CPAP BIPAP Do you snore loudly (louder No 03/18/24 09:39 than talking or can be heard Do you often feel tired/ No 03/18/24 09:39 fatigued/ sleepy during daytime? Has anyone observed you stop No 03/18/24 09:39 breathing during sleep? STOP Results Negative 03/18/24 09:39 QUESTION #5 FULL TEXT : Do you snore loudly (louder than talking or can be heard through closed doors)? Tobacco Use History Tobacco Use History - convention services manager: Tobacco Use History - convention services manager Tobacco Use Smoking Status Heavy Smoker (>10/day) 03/18/24 09:39 Hx Tobacco Use Yes 03/18/24 09:39 Years Smoking Packs Smoked per Day Smoking Cessation Date was within the last 15 years Hx Smoking Cessation Date Hx Smoking Cessation Counseling Hematologic Medial History Hematologic Hx - convention services manager: Hematologic Medical Hx - charm filter operator helper Hx of Blood Transfusion No 03/18/24 09:39 Hx of Transfusion in last 3 No 03/18/24 09:39 Months Date of Last Transfusion (if within last 3 months) Ever experience any problems No 03/18/24 09:39 with transfusion(s)? Specify any problems Hx of Preganancy in last 3 N/A 03/18/24 09:39 Months Nurse Filling Out Transfusion KMESSENGE 03/18/24 09:39 & Questions: Date: 03/18/24 03/18/24 09:39 Time: 09:44 03/18/24 09:39 Patient unable to answer at this time (ie. confused, unrespo /Reproduction History /Reproductive History - convention services manager: /Reproductive Hx- convention services manager Hx Now No 03/18/24 22:14 Gestational Age (in weeks): EDC: Hx Hx Para Hx Section SAB No 03/18/24 22:14 Active Medications Active Medications: Current Medications Generic Name Dose Route Start Last Admin Trade Name Freq PRN Reason Stop Dose Admin Acetaminophen 500 mg 03/18/24 09:42 03/18/24 23:33 Acetaminophen 500 Mg Tablet PO 500 mg Q6H PRN PRN Administration Pain Score 1-10 Hydromorphone HCl 0.5 mg 03/18/24 09:42 Hydromorphone 0.5 Mg/0.5 Ml Syringe IV Q4H PRN PRN Pain Score 6-10 Sodium Chloride 250 mls @ 15 mls/hr 03/18/24 09:41 IV .[id number] PRN Additional IVPB Infusion Sodium Chloride 250 mls @ 15 mls/hr 03/18/24 09:41 IV .[id number] PRN Saline Flush Sodium Chloride 1,000 mls @ 125 mls/hr 03/18/24 09:45 03/19/24 09:41 IV 125 mls/hr .Q8H GRACE Administration Piperacillin Sod/Tazobactam 50 mls @ 12.5 mls/hr 03/18/24 22:00 03/19/24 09:19 Sod 3.375 gm/ Sodium Chloride IV Infused Q8 GRACE Infusion Lorazepam 2 mg 03/18/24 12:23 Lorazepam 2 Mg/Ml Syringe IV UD PRN CIWA score >/=15. Protocol Lorazepam 2 mg 03/18/24 12:23 Lorazepam 2 Mg/Ml Syringe IV Q2H PRN PRN CIWA score > 8 but <15 Protocol Nicotine 21 mg 03/18/24 18:00 03/18/24 17:45 Nicotine 21 Mg Patch TD 21 mg DAILY GRACE Administration Ondansetron HCl 4 mg 03/18/24 09:42 Ondansetron 4 Mg/2 Ml Vial IV Q6H PRN PRN NAUSEA/VOMITING Sodium Chloride 10 - 40 ml 03/18/24 09:41 0.9% Saline Lock 10 Ml Syringe IV UD PRN SALINE FLUSH PFSH Medical History Alcohol abuse Home Medications ?Medication ?Instructions ?Recorded ?Last Taken ?Type NK 03/18/24 Unknown History Allergy/AdvReac Type Severity Reaction Status Date / Time No Known Allergies Allergy Verified 10/27/23 04:10 Social History household members: none Smoking Status: Heavy Smoker (>10/day) substance use type: does not use Review of Systems (Anesthesia) ROS Narrative System reviewed and no additional complaints, except as documented.
[2024-03-19 10:32] LABS: AST(SGOT) 28 U/L (15-37); Alanine Aminotransfer ALT/SGPT 61 U/L (16-61); Albumin, Serum 3.1 g/dL (3.2-5.0); Alkaline Phosphatase 54 U/L (45-117); Bilirubin, Direct 0.12 mg/dL (0.00-0.30); Protein, Total 6.1 g/dL (6.4-8.2)
--- NOTE | 2024-03-19 11:00 | CASEMGMT ---
MANE CM to pt room at this time for initial assessment. Pt is currently off of the floor at this time. AMARIS.
--- NOTE | 2024-03-19 11:15 | GALL_PTH ---
PATIENT: VIKASH SHER LOC: MS3 U#:[id number] AGE/SX: 33/M ROOM: WI312 RE03/18/[address]: Dr. Juan Verma MD : 1990 BED: 1 DIS: 03/20/2024 SPEC #: [id number] RECD: 03/19/24 18:14 STATUS: GURWINDER OLMEDO #: [id number] ADAMS: 03/19/24 11:[address]: Juan Verma DEPT: SURGICAL PATHOLOGY RECD BY: Carolee Eid ENTERED: 03/20/24 07:07 SP TYPE: RYAN PETIT DR: Dr. Iain Harris MD No Primary Care Phys Tissues: Gallbladder, NOS Procedures: Surgery Specimen Level III HEADER OPERATION: Laparoscopic cholecystectomy with IOC PRE-OP DIAGNOSIS: Acute cholecystitis TISSUE SUBMITTED: Gallbladder MICROSCOPIC DIAGNOSIS Gallbladder, cholecystectomy: Acute and chronic ulcerated and hemorrhagic cholecystitis and cholelithiasis. Reactive epithelial changes. YOSEF/ 03/21/2024 MICROSCOPIC DESCRIPTION Slides are reviewed. GROSS DESCRIPTION Received is one container labeled with the patient's name and designated gallbladder. The specimen consists of a gallbladder measuring 9.0 cm in length and up to 3.0 cm in diameter. The external surface is pink-esquivel, smooth and glistening for the most part. Focally it is granular, hemorrhagic and contains cautery artifact. The gallbladder contains hemorrhagic fluid and one light-brown ovoid stone measuring 1.5 cm in greatest dimension. The mucosa is congested and hemorrhagic. The gallbladder wall measures up to 0.6 cm in thickness. Water Taxi Operator sections from the gallbladder and the cystic duct are submitted in one cassette. / YOSEF: 03/20/2024 TC:3 CPT: 94325
--- NOTE | 2024-03-19 14:15 | RAD_ITS ---
EXAM: FL CHOLANGIOGRAPHY AND/OR PANCREATOGRAPHY CLINICAL INDICATION: TECHNIQUE: Cine fluoroscopic views of the upper abdomen obtained at the time of laparoscopic cholecystectomy with contrast injected via the cystic duct. COMPARISON: No relevant prior studies available. FINDINGS: Normal-appearing biliary tree. No filling defects to indicate retained stone. There is visualization of the duodenum. See operative note for additional information. RAD/Cholangiogram/ O R,Initial IMPRESSION: Normal operative cholangiogram. Electronically Signed: Rohit Butcher MD at 15:14 EDT ,
[2024-03-19] MEDS: Bupiv/Epi 0.25% 30 ML Vial (15:03)
--- NOTE | 2024-03-19 15:08 | PCM.OPRPT ---
Report of Operation Date of Procedure: 03/19/24 Pre-Operative Diagnosis: Cholecystitis Post-Operative Diagnosis: Acute on chronic cholecystitis Surgery/Procedure Performed:: Laparoscopic cholecystectomy with intraoperative cholangiography Description of Surgical Findings:: ? Evidence of acute on chronic cholecystitis with moderately thick edema plane beneath peritoneal covering of gallbladder ? Cholangiogram showing normal antegrade flow through the common bile duct, however, there was delayed filling through the left hepatic duct despite trying to place patient in more of a gravity dependent positioning (Trendelenburg) Surgeon: Juan Verma teaching specialists: Marva Edmonds teaching specialists: Kenneth Lopez Type of Anesthesia: General/Supplemental Anesthesiologist: Jayden Denney Specimen's removed: Gallbladder Estimated Blood Loss (mL): 25 Description of Procedure: After proper identification in the preoperative holding area the patient was brought to the operating room where he was positioned supine on the operating room table. Preoperatively SCDs were connected and antibiotics were administered (patient was redosed from continuous administration of IV Zosyn). General anesthesia was then induced. Patient's abdomen was prepped and draped in usual sterile fashion. A formal timeout was conducted to confirm both patient and the procedure. Procedure was begun with a supraumbilical incision which was extended deeply down to the level of the fascia. The fascia was elevated and incised, as well as the peritoneum. A finger sweep was performed to ensure there were no underlying adhesions and a 12 mm balloon trocar was inserted. Pneumoperitoneum was established at 15 mmHg. Three additional trocars (all 5 mm) were placed in the epigastrium and in the right upper quadrant. Inspection of the peritoneum revealed no inadvertent injury to the viscera below. The gallbladder was visualized with evidence of moderate inflammation and was taut with distention. The gallbladder was thus decompressed with the needle aspirator on a suction travel ticketing reviewer device and then the fundus was grasped and elevated cephalad. Using careful dissection the peritoneum was opened and the structures of the hepatocystic triangle were delineated. Once the critical view of safety was obtained, the cystic duct was singly clipped and partially divided with a ductotomy. A cholangiocatheter was fed into the proximal segment of the cystic duct and clipped into place. Under fluoroscopy a cholangiogram was then obtained showing a standard length cystic duct flowing into a common bile duct with unobstructed antegrade flow of contrast into the duodenum. There is also noted there was also retrograde flow through the common hepatic duct into the right and left hepatic ducts, but it appeared there was some delayed filling of the left hepatic duct for unclear reasons. I attempted twice more to obtain the study by placing patient in an increasingly Trendelenburg position to try to use gravity to my advantage to induce filling of this duct but even with this maneuver there seem to be a delay. Recognizing the above to be more of an incidental finding within the liver parenchyma I was satisfied with this result and the cholangiocatheter was withdrawn. The proximal cystic duct was sealed with clips and the cystic duct was completely transected. The same process was used for the cystic artery. The gallbladder was then removed from the gallbladder fossa with the use of electrocautery. An inadvertent rent was made in the gallbladder body during this process resulted in local spillage of bile which was suctioned free of the peritoneal cavity with the suction travel ticketing reviewer device. After the gallbladder was fully removed, selective electrocautery was used to obtain hemostasis in the gallbladder fossa. The gallbladder was placed in an Endo Catch bag. Morison's pouch was irrigated and the effluent was suctioned free of the peritoneum. Hemostasis was again confirmed in the gallbladder fossa. Pneumoperitoneum was evacuated and the gallbladder was removed from the supraumbilical port site and the Endo Catch bag after the fascial defect was modestly enlarged to accommodate the larger gallbladder specimen. After the specimen was passed off the field for permanent pathologic processing, the fascia of the this port site was closed with #1Vicryl in several [id number] fashion. A total of 30 mL of anesthetic was injected at the port sites for postoperative pain control. The skin of each port site was then closed in subcuticular fashion using 4-0 Monocryl. Steri-Strips and bandages were applied as dressings. Patient tolerated the procedure well without any apparent complications. On emergence from their anesthetic the patient was taken to PACU for ongoing recovery. Complications None Procedures Digestive [id number]: [id number] Laparo cholecystectomy/graph
--- NOTE | 2024-03-19 15:27 | CASEMGMT ---
RN CM NOTE: RN CM to room. Pt remains out of room. RN CM to complete initial assessment at a later time. Milady BSN RN CM
--- NOTE | 2024-03-19 15:56 | PCM.POST.ANE ---
Anesthesia: Postop Eval I Current Vital Signs Temperature: 98.4 F Pulse Rate: 83 Blood Pressure: 98/60 Respiratory Rate: 14 Pulse Ox: 98 Oxygen Delivery Method: Nasal Cannula (with 100mm OA d/t upper airway obstruction) Oxygen Flow Rate (L/min): 2 Assessment Airway patent: Yes Spontaneous unlabored respirations: Yes nausea: No Vomiting: No Anesthesia Complication: No Fluid Hydration Crystalloid volume administer (ml): 800 Total IV fluid infused: 800 Progress Note Anesthesia document: Postop Eval 1 completed: Yes
--- NOTE | 2024-03-19 18:50 | PCM.POSTANE2 ---
Anesthesia Postop Eval I Sum Postop Eval Completion status Anesthesia document: Postop Eval 1 completed: Yes Anesthesia Postop Eval I Summary Anesthesia Postop Eval I Summary: Anesthesia Postop Eval I: Assessment Summary Airway patent Yes 03/19/24 15:58 [email or web address] Spontaneous unlabored Yes 03/19/24 15:58 [email or web address] respirations Mental status nausea No 03/19/24 15:58 [email or web address] Vomiting No 03/19/24 15:58 [email or web address] Anesthesia Postop Eval I: Fluid Summary Crystalloid volume administer 800 03/19/24 15:58 [email or web address] (ml) Colloids volume administered ( ml) Blood Product volume administered (ml) Total IV fluid infused 800 03/19/24 15:58 [email or web address] Anesthesia Postop Eval I: Summary Notes Anesthesia Complication No 03/19/24 15:58 [email or web address] Anesthesia Complication Comment: Post-operative progress note Anesthesia: Postop Eval II Evaluation Mental status: Awake and Calm Pain Level: 1 nausea: No Vomiting: No Complications Anesthesia Complication: No
[2024-03-19] MEDS: Acetaminophen 500 MG Tablet PO (20:00)
[2024-03-20 02:45] VITALS: BP 116/69; PULSE 80; RESP 16; TEMP 36.7; O2SAT 97
[2024-03-20] MEDS: 0.9% Normal Saline (1000mL) 1,000 ML 75 ML IV (02:45)
[2024-03-20 05:50] VITALS: BP 112/72; PULSE 82; RESP 16; TEMP 36.9; O2SAT 96
[2024-03-20 07:34] LABS: Absolute Lymphocyte Count 1.39 X10^3/uL (0.83-4.51); Absolute Neutrophil Count 10.1 X10^3/uL (2.0-7.7); Basophil# 0.02 X10^3/uL; Basophil% 0.2 % (0-1); Eosinophil# 0.01 X10^3/uL; Eosinophils% 0.1 % (0-5); Hemoglobin 13.3 g/dL (13.0-16.5); Lymphocyte # 1.39 X10^3/ul (0.83-4.51); Lymphocyte % 11.3 % (19-41); Mean Corp Hgb Conc 34.1 g/dL (32-36); Mean Corpuscular Hgb 30.9 pg (27.0-32.0); Mean Corpuscular Volume 90.5 fL (80-94); Mean Platelet Vol. 10.6 fl (6.2-12.0); Monocyte# 0.72 X10^3/uL; Monocyte% 5.9 % (0-10); NRBC Flagged by Analyzer 0 % (0-5); Neutrophil # 10.05 X10^3/uL (2.7-7.7); Platelet Count 238 K/mm3 (150-450); RBC Distribution Width SD 40.1 fl (35.1-43.9); Red Blood Count 4.31 M/mm3 (4.6-6.2); White Blood Count 12.3 K/mm3 (4.4-11.0)
[2024-03-20 07:36] VITALS: BP 116/69; PULSE 89; RESP 20; TEMP 36.7; O2SAT 100
--- NOTE | 2024-03-20 08:07 | PCM.DC.SUM ---
Providers Date of Admission: 03/18/24 Primary Care Physician: Emily Primary Care Phys Consultations 03/19/24 12:16 Consult: Hospitalist Routine Consulting Provider: Iain Harris Reason for Consult: h/o heavy ETOH use EMERGENT Consult: No MD Notified: Yes Date Notified: 03/19/24 Time Notified: 12:17 Method of Notification: ED Physician Initiated Reason For Visit: ABDOMINAL PAIN, ACUTE CHOLECYSTITIS Diagnosis Discharge Diagnosis (1) Acute cholecystitis: Status: Acute Code(s): K81.0 - Acute cholecystitis Plan: I am following this patient in conjunction with Dr. Verma. He has independently evaluated this patient. Plan to proceed to the operating room today for a laparoscopic cholecystectomy with IOC with Dr. Verma. Patient has had the opportunity to ask and have questions answered. Patient verbally understands and agrees with the plan. Medications at Discharge Home Medications acetaminophen 500 mg tablet 500 mg PO Q6H PRN PRN Pain Score 1-10 #0 tabs 03/20/24 oxycodone 5 mg tablet 5 mg PO Q6H PRN PRN Pain Score 6-10 3 days #8 tabs 03/20/24 Hospital Course Operations cholecystecomy (with normal IOC) Summary of Care Provided Minutes Spent on Discharge: 25 Hospital Course: Patient is a 33 y/o M who presented with an acute onset of upper abdominal pain. RUQ u/s was obtained and demonstrated cholelithiasis with findings consistent with acute cholecystitis. Dr. Verma performed a laparoscopic cholecystectomy with intraoperative cholangiogram. Patient tolerated the procedure well. Hospitalist was consulted to assist with medical management of potential delirium tremens and withdrawal symptoms from alcohol abuse. Patient had an uneventful hospitalization. Upon discharge, he notes minimal incisional discomfort. He denies nausea, vomiting, fever. He is passing flatus. He is tolerating his current diet. He was provided post-operative instructions. He is to follow-up with our office in 10-14 days. Physical Exam Const alert, oriented x3 and no apparent distress GI GI Narrative: Abdomen- soft, nontender. Incisions c/d/i. no erythema or infection noted. Weight / BMI Weight Weight: 149 lb 12.795 oz Body Mass Index (BMI) 24.9 ABG / Lab / Microbiology Data 03/20/24 06:53 03/19/24 05:59 Laboratory: Laboratory Results - last 24 hr 03/19/24 05:59: Total Bilirubin 0.60, Direct Bilirubin 0.12, AST 28, ALT 61, Alkaline Phosphatase 54, Total Protein 6.1 L, Albumin 3.1 L, Globulin 3.0 03/20/24 06:53: WBC 12.3 H, RBC 4.31 L, Hgb 13.3, Hct 39.0 L, MCV 90.5, MCH 30.9, MCHC 34.1, RDW Std Deviation 40.1, RDW Coeff of Kay 12.0, Plt Count 238, MPV 10.6, Immature Gran % (Auto) 0.500, Neut % (Auto) 82.0 H, Lymph % (Auto) 11.3 L, Kinney % (Auto) 5.9, Eos % (Auto) 0.1, Baso % (Auto) 0.2, Absolute Neuts (auto) 10.1 H, Absolute Lymphs (auto) 1.39, Nucleated RBC % 0 Radiography Diagnostic Testing: Radiology Impression Cholangiogram 03/19/24 14:15 IMPRESSION: Normal operative cholangiogram. Electronically Signed: Rohit Butcher MD at 15:14 EDT Reading Location ID and State: [facility] / [place] Tel , Service support , D/C Instructions Discharge Diet: Light diet - advance as tolerated Discharge Activity: May Not Drive (For 3 days or while taking narcotic pain medication) and May Shower Lifting Restrictions: 15 pounds for 2 weeks Call your doctor if your incision/area has: Continuous Slow Oozing, Sudden Increased Bleeding, Increased Pain/ Swelling, Increased Redness, Foul Smelling Discharge and Swelling at the incision site Suture Line Care: Avoid Pulling/Pushing and Avoid Pinching/Bending Remove Dressing in: 2 days Cleanse incision/area with: Soap & Water Please Follow Up With: Juan Verma MD When: Please contact our office to schedule an appointment for 10-14 days from your surgery at [phone] option #2 Meaningful Use Info Meaningful Use Meaningful Use Diagnoses (Choose all that apply): None applicable Ischemic Stroke Statin Dosing Therapy Reference: STATIN DOSE THERAPY REFERENCE: * Patients > 75 years receive moderate or high dose statin therapy. * Patients 75 years or YOUNGER should receive HIGH intensity statin dose unless contraindicated. You will be required to document reason for non-treatment if statin daily dose does not meet guidelines. HIGH DOSE STATIN THERAPY DAILY Atorvastatin > than or = to 40 mg Rosuvastatin > than or = to 20 mg Amlodipine + Atorvastatin > than or = to 2.5/40 mg Ezetimibe + Simvastatin 10/80 mg Simvastatin 80mg Discharge Plan Admission Admit Date/Time: 03/18/24 09:42 Primary Reason for Your Visit: Acute cholecystitis Attending Provider: Juan Verma Primary Care Provider: Care Physician,No Primary Consulting Providers: Iani Harris Instructions Additional Instructions / Restrictions: Cholecystectomy Diet ? Start light with soups and soft bland foods. You may advance diet as tolerated. Activity ? You may drive in 3-5 days but not while taking narcotic pain medication. ? I encourage walking. You may go up steps, one at a time. ? Do not swim or use hot tubs for 2 weeks. ? For comfort, you may use warm compresses or ice as needed for 15-20 minutes at a time. Lifting ? You may lift up to 15 pounds for 2 weeks. Dressings/Incision ? You may shower OVER your plastic dressings ? Do NOT tub bathe for 1 week ? Leave plastic dressings on for 2 days. ? When plastic dressings are removed, you will find steri strips. It is okay to continue showering with them in place, pat them dry. ? You may remove steri-strips after 1 week. We recommend getting them soaking wet for easier removal. Medications ? Anesthesia used during surgery and pain medications may cause constipation. I recommend initiating on the day of surgery a fiber supplement like, Metamucil, Citrucel, FiberCon, Benefiber, or a generic form of these medications. 1 heaping tablespoon in water daily. You may continue to utilize any bowel regimen or oral laxatives that you routinely take. ? As long as you are not intolerant to Tylenol, acetaminophen, ibuprofen, Motrin, Advil, Aleve, or similar medications, I would recommend transitioning to these coqs-toq-jimgnap medicines as soon as possible instead of continued use of narcotic pain medication. Follow up ? You should call [facility] soon after surgery, at [phone] option 1 to make a follow up appointment for 10-14 days after your surgery Discharge Orders/Prescriptions Prescriptions: New oxycodone 5 mg Tablet 5 mg PO Q6H PRN PRN (Reason: Pain Score 6-10) 3 Days Qty: 8 0RF acetaminophen 500 mg Tablet 500 mg PO Q6H PRN PRN (Reason: Pain Score 1-10) Qty: 0 0RF Referrals / Follow Up: Juan Verma MD [Med Staff - Active Staff] - 04/02/24 Care Physician,No Primary [Primary Care Provider] - Disposition Disposition (needs filled in before D/C Order can be placed): Home, Self Care Charges/Coding Visit Charges Inpatient E&M: 08860 Disch Hosp (no charge; post-op)
[2024-03-20 08:21] LABS: ALB/GLOB Ratio 0.8 RATIO (0.9-2.4); AST(SGOT) 177 U/L (15-37); Alanine Aminotransfer ALT/SGPT 307 U/L (16-61); Albumin, Serum 2.9 g/dL (3.2-5.0); Alkaline Phosphatase 134 U/L (45-117); Anion Gap 4 (5-15); BUN 8 mg/dL (7-18); BUN/Creat Ratio 9.9 RATIO (10-20); Calcium,Total 8.8 mg/dL (8.5-10.1); Chloride 108 mmol/L (98-107); Creatinine, Serum 0.81 mg/dL (0.70-1.30); EST Glomerular Filtration Rate 116 mL/min (>60); Est Glom Filt Rate - Afr Amer 141 mL/min (>60); Estimated Creatinine Clearance 112.83 ml/min; Globulin 3.6 g/dL (2.2-4.2); Glucose 102 mg/dL (74-106); Potassium 4.2 mmol/L (3.5-5.1); Protein, Total 6.5 g/dL (6.4-8.2); Sodium Level 139 mmol/L (136-145)
--- NOTE | 2024-03-20 09:23 | CASEMGMT ---
MANE CORTES Assessment: Face to Face with pt for initial transition planning/care coordination assessment. MANE CORTES introduced self and role at [facility], pt voices understanding and consents to assessment. Pt is A&O x4 and answers all questions appropriately at this time. Pt sitting up in bed in no distress. Care providers, pharmacy, and demographics verified/updated. Admitting Dx: abd pain, acute cholecystitis Strata Score: 2 PCP:Denies, pt provided with local healthcare directory pamphlet, pt denies need to assist with setting up PCP. Pt states he thinks his mom may have set him up with a PCP yesterday. Specialists:Denies Preferred Pharmacy: [facility] Retail Insurance: Self Pay Prescription Benefit: no LNOK:Brian Lovelace, brother Living Arrangements: Pt lives alone in a single story home with no steps to enter. Pt reports he is I in ADL/IADL and denies concerns at home. Pt may go stay with his mother post dc. Transportation: Pt drives self and denies concerns with transportation. DME:Denies HHC/SNF: Denies hx of Pt states no concerns with going home at time of dc. Pt states he smokes a pack of cigarettes per day. States he was drinking a fifth of whiskey every day to day and a half. He state she has stopped on his own in the past and feels that he can do this again. He states he has been to counseling for his drinking and if he wants to stop, he feels he can. He denies needs for any resources or to speak to addiction counselor. Pt denies any street or illegal drugs. Pt states no further concerns/needs. CM to follow. Advised pt to ask CM if any further question/concerns/needs arise, voices understanding. Pt Goal: Home Plan: Home Loraine GILLIAM CM
[2024-03-20] MEDS: Acetaminophen 500 MG Tablet PO (09:41)
--- NOTE | 2024-03-20 09:49 | CASEMGMT ---
Social Work- SW met with pt d/t self-pay status to ensure that pt has resources needed. Pt reports that medicaid application has been started and mom has already connected him with a PCP for follow-up visits. Pt reports no other needs at this time. Pt declines referrals or resources for community assistance, [place]/AoH services, prescription services, etc. SW did provide a [facility] Community Resource Guide, as well as [place] [facility] services booklet, information on free clinic in [place] and [facility]. Pt plans to d/c home with any supports needed provided by mom. DAVEY Shepard
--- NOTE | 2024-03-20 11:33 | PHA.DC_ITS ---
Pharmacy [facility] has performed discharge medication reconciliation and counseling for this patient. The patient's discharge medication list was reviewed for discrepancies and discrepancies were resolved. The patient was counseled on the following discharge medications and changes in medications for homegoing were reviewed. 1. TYLENOL 2. OXYCODONE The Reason for Use, instructions for use, and potential side effects were reviewed for all new medications. The patient's questions regarding all of their medications were answered. The patient was able to verbally demonstrate an understanding of their discharge medications. Medications at Discharge Home Medications acetaminophen 500 mg tablet 500 mg PO Q6H PRN PRN Pain Score 1-10 #0 tabs 03/20/24 oxycodone 5 mg tablet 5 mg PO Q6H PRN PRN Pain Score 6-10 3 days #8 tabs 03/20/24
== END 2024-03-20 12:25 | disposition home or self-care (01) | DRG 419 ==
LOC: ED 08:43 → MS3 09:49
PROVIDERS: Anesthesiology; Physician Assistant; Admitting Provider Surgery; Emergency Provider Emergency Medicine; Visit Provider Surgery
PROC: 0FT44ZZ Resection of Gallbladder, Percutaneous Endoscopic Approach (ICD-10-PCS; CPT 47610; principal; 2024-03-19 10:55)
DX: K80.12 Calculus of gallbladder with acute and chronic cholecystitis without obstruction (principal); F10.10 Alcohol abuse, uncomplicated; F17.200 Nicotine dependence, unspecified, uncomplicated; Y90.9 Presence of alcohol in blood, level not specified
CPT/HCPCS: 36415; 74300; 76000; 76705; 80053; 80076; 83690; 85025; 85610; 85730; 88304; 93005; 99285; 99406; J7030; J7050; A4216; J2405

== ENCOUNTER 2024-04-01 17:06 | Emergency (ER) | payer SELFPAY ==
[2024-04-01 17:07] VITALS: BP 144/106; PULSE 99; RESP 20; TEMP 36.3; O2SAT 100; BMI 25.6
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
[2024-04-01 20:17] VITALS: BP 135/75; PULSE 98; RESP 19; TEMP 36.7; O2SAT 100
== END 2024-04-01 20:22 | disposition home or self-care (01) ==
PROVIDERS: Emergency Provider Emergency Medicine; Visit Provider Emergency Medicine
DX: S52.514A Nondisplaced fracture of right radial styloid process, initial encounter for closed fracture (principal); F17.210 Nicotine dependence, cigarettes, uncomplicated; V29.99XA Rider (driver) (passenger) of other motorcycle injured in unspecified traffic accident, initial encounter
CPT/HCPCS: 29125; 73110; 99283

== ENCOUNTER 2024-04-02 23:49 | Emergency (ER) | payer SELFPAY ==
[2024-04-02 23:50] VITALS: BP 137/101; PULSE 105; RESP 16; TEMP 36.3; O2SAT 98; BMI 25.9
--- NOTE | 2024-04-03 00:12 | CT_ITS ---
EXAM: CT HEAD WITHOUT INTRAVENOUS CONTRAST CLINICAL INDICATION: headache TECHNIQUE: Multiple axial images were obtained of the head without intravenous contrast. This CT exam was performed using one or more of the following dose reduction techniques: automated exposure control, adjustment of the mA and/or kV according to patient size, and/or use of iterative reconstruction technique. RADIATION DOSE: CTDIvol = 44.99 mGy, DLP = 796.11 mGy-cm COMPARISON: No relevant prior studies available. FINDINGS: BRAIN AND EXTRA-AXIAL SPACES: Unremarkable. No intra- or extra-axial hemorrhage. No evidence of acute infarct. No intracranial mass or mass effect. There is preservation of the kramer/white matter interface. Posterior fossa structures are unremarkable. Ventricles are appropriate for age. No hydrocephalus. Basal cisterns are patent. BONES/JOINTS: Unremarkable. No discrete lytic or blastic abnormalities. SINUSES: Unremarkable as visualized. Clear. MASTOID AIR CELLS: Unremarkable. Clear. ORBITS: Visualized globes, extraocular muscles, optic nerves and retrobulbar fat appear unremarkable. CT/Brain/Head without Contrast IMPRESSION: Negative head/brain CT without intravenous contrast. Electronically Signed: Rigoberto Eubanks MD at 1:13 EDT ,
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
[2024-04-03 01:25] VITALS: BP 143/72; PULSE 85; RESP 16; TEMP 36.4; O2SAT 99
== END 2024-04-03 01:26 | disposition home or self-care (01) ==
PROVIDERS: Emergency Provider Emergency Medicine; Visit Provider Emergency Medicine
DX: R51.9 Headache, unspecified (principal); F17.210 Nicotine dependence, cigarettes, uncomplicated
CPT/HCPCS: 70450; 99283; A4216